=== PATIENT | male | born 1950 | race Caucasian/White ===

== ENCOUNTER 2017-05-30 14:45 | Inpatient (IN) | payer OTHER, MEDICARE ==
[~2017-05-30] VITALS: Ht 190.5 cm; Wt 154.5 kg
[2017-05-30 14:00] VITALS: BP 129/64; PULSE 82; RESP 20
[2017-05-30] MEDS ORDERED: SENNA/DOCUSATE NA (8.6MG/50MG) TAB PO PRN (17:00)
[2017-05-30 17:17] LABS: ADD UMIC YES; UR ASCORBIC ACID NEGATIVE (NEGATIVE); UR BILIRUBIN (Dip) NEGATIVE (NEGATIVE); UR BLOOD (Dip) 2+ mg/dL (NEGATIVE); UR CLARITY CLEAR (CLEAR); UR COLOR STRAW (YELLOW); UR GLUCOSE (Dip) NEGATIVE (NEGATIVE); UR KETONES (Dip) NEGATIVE (NEGATIVE); UR LEUKOCYTE ESTERASE (Dip) NEGATIVE Leu/ul (NEGATIVE); UR NITRITE (Dip) NEGATIVE (NEGATIVE); UR RBC 6 /HPF (0-5); UR SPECIFIC GRAVITY (Dip) 1.006 (1.003-1.030); UR TOTAL PROTEIN (Dip) NEGATIVE (NEGATIVE); UR UROBILINOGEN (Dip) NEGATIVE (NEGATIVE)
[2017-05-30] MEDS: RIVAROXABAN 10 MG TABLET PO SCH (17:28)
[2017-05-30] MEDS: ACETAMINOPHEN 325 MG TAB PO PRN ×2 (17:28→21:48)
[2017-05-30 20:00] VITALS: BP 119/62; RESP 18
[2017-05-30] MEDS: DOCUSATE SODIUM 100 MG CAP PO SCH (20:36)
[2017-05-30] MEDS: GABAPENTIN 100 MG CAP PO SCH (20:36)
[2017-05-30] MEDS: ATORVASTATIN 20 MG TAB PO SCH (20:36)
[2017-05-30] MEDS: LOSARTAN 50 MG TAB PO SCH (20:36)
[2017-05-30] MEDS: LORATADINE 10 MG TAB PO SCH (23:18)
[2017-05-31 02:00] VITALS: BP 124/65; RESP 18
[2017-05-31] MEDS: ACETAMINOPHEN 325 MG TAB PO PRN ×4 (03:19→20:44)
[2017-05-31] MEDS: PANTOPRAZOLE (EC) 40 MG TAB PO SCH (05:58)
[2017-05-31] MEDS: MAGNESIUM HYDROXIDE 30ML CUP PO PRN (07:07)
[2017-05-31 07:30] VITALS: BP 128/65; RESP 20
[2017-05-31] MEDS: DOCUSATE SODIUM 100 MG CAP PO SCH ×2 (08:07→20:43)
[2017-05-31] MEDS: CHOLECALCIFEROL 2,000 UNIT CAP PO SCH (08:08)
[2017-05-31] MEDS: GABAPENTIN 100 MG CAP PO SCH ×2 (08:08→20:44)
[2017-05-31] MEDS: TRIAMTERENE/HCTZ (37.5-25) CAP PO SCH (08:08)
[2017-05-31] MEDS: BUDESONIDE (EC) 3 MG CAP PO SCH (08:08)
--- NOTE | 2017-05-31 08:56 | HP ---
DATE OF ADMISSION: 05/30/2017 CHIEF COMPLAINT: Status post right tendon quadriceps repair. HISTORY OF PRESENT ILLNESS: This is a 67-year-old male with a past medical history of hypertension, history of dyslipidemia, history of bacterial colitis who was admitted to [facility] aft er suffering a ground level fall. The patient subsequent to the fall started to develop right knee pain and inability to walk. The patient was brought over to [facility] on 05/27/2017. T he patient was diagnosed with right patellar tendon tear. The patient was seen by orthopedist and u nderwent surgical correction. Following surgical correction, the patient had no acute complications and he was placed on Xarelto for DVT prophylaxis. The patient, however, did have a decline in his premorbid gait and as a result was transferred to [facility] acute rehab for continued reha bilitation. Currently, the patient is stable. Denies any fevers, chills, nausea, vomiting. The patient is comp laining about some right knee pain, but otherwise is in no acute distress. PAST MEDICAL HISTORY: History of hypertension, history of diabetes, history of obesity, history of bacterial colitis. PAST SURGICAL HISTORY: Previous history of hernia surgery, testicular surgery years ago. FAMILY HISTORY: Noncontributory. SOCIAL HISTORY: Does not drink, smoke or do drugs. MEDICATIONS: The patient's medications have been reviewed and reconciled. ALLERGIES: NO KNOWN DRUG ALLERGIES. REVIEW OF SYSTEMS: A 14-point review of systems was conducted. Pertinent positives stated in HPI, otherwise negative. PHYSICAL EXAMINATION: VITAL SIGNS: Blood pressure is 124/65, respiration 18, pulse 73, temperature 98.7. HEENT: Head is normocephalic. NECK: Supple. HEART: Regular rate. LUNGS: Show diminished breath sounds at base. ABDOMEN: Soft, nontender to palpation without rebound or guarding. EXTREMITIES: Negative for clubbing, cyanosis, no edema on the left leg. Right leg has dressing and a brace. NEUROLOGIC: No focal deficits. DERMATOLOGIC: No rashes. LABORATORY DATA: Currently pending. ASSESSMENT AND PLAN: This is a 67-year-old male who presents with: 1. Status post right quadriceps tendon repair. Plan is to undergo physical therapy and occupationa l therapy. Continue pain control, deep vein thrombosis prophylaxis with Xarelto. 2. Hypertension. Continue current blood pressure regimen. 3. History of bacterial colitis. Continue Budesonide. 4. Neuropathy. Continue Neurontin. 5. Dyslipidemia. Continue statin therapy. 6. Obesity. Continue dietary modification. 7. Gastrointestinal/deep vein thrombosis prophylaxis. Continue proton pump inhibitor and Xarelto. 8. Constipation. Continue lactulose. Please note I spent up to 25 minutes of face to face time with the patient. The patient is FULL COD E. Dictated By: DONY GUZMÁN DO NR/NTS Conf#: [id number] DID#: [id number] CC: NAHUM CHAVEZ MD;*EndCC*
[2017-05-31 09:02] LABS: ALBUMIN 3.1 g/dl (3.3-4.9); ALBUMIN/GLOBULIN RATIO 1.1; BILIRUBIN,INDIRECT 0.5 mg/dl (0-1.1); BILIRUBIN,TOTAL 0.5 mg/dl (0.2-1.3); CALCIUM 8.6 mg/dl (8.4-10.2); CREATININE 1.19 mg/dl (0.61-1.24); POTASSIUM 3.7 mmol/L (3.5-5.1); TOTAL PROTEIN 5.9 g/dl (6.1-8.1)
[2017-05-31 09:56] LABS: BASOPHILS % 0.3 % (0.0-2.0); EOSINOPHILS # 0.1 10^3/ul (0.0-0.5); EOSINOPHILS % 2.1 % (0.0-7.0); HEMATOCRIT 25.4 % (42.0-52.0); HEMOGLOBIN 8.5 g/dl (14.0-18.0); LYMPHOCYTES # 1.2 10^3/ul (0.8-2.9); LYMPHOCYTES % 18.7 % (15.0-51.0); MEAN CORPUSCULAR HGB CONC 33.5 g/dl (32.0-37.0); MEAN CORPUSCULAR VOLUME 95.5 fl (82.0-101.0); MEAN PLATELET VOLUME 11.2 fl (7.4-10.4); MONOCYTE # 0.7 10^3/ul (0.3-0.9); MONOCYTES % 11.3 % (0.0-11.0); NEUTROPHIL # 4.4 10^3/ul (1.6-7.5); NEUTROPHILS % 67.1 % (39.0-77.0); PLATELET COUNT 118 10^3/UL (140-415); RED BLOOD COUNT 2.66 10^6/ul (4.70-6.10); RED CELL DISTRIBUTION WIDTH 14.1 % (11.5-14.5); WHITE BLOOD COUNT 6.5 10^3/ul (4.8-10.8)
--- NOTE | 2017-05-31 11:43 | CONS ---
DATE OF ADMISSION: 05/30/2017 DATE OF CONSULTATION: 05/31/2017 TYPE OF CONSULTATION: Rehabilitation post-admission physician evaluation REHABILITATION IMPAIRMENT CATEGORY: Other orthopedic disorder with right patellar avulsion fracture with quadriceps tendon rupture, status post repair. ACTIVE COMORBIDITIES: 1. Acute pain syndrome. 2. Morbid obesity. 3. Peripheral polyneuropathy. 4. Urinary retention. 5. Hypertension. 6. Hyperlipidemia. 7. Venous insufficiency. 8. Impairments in self-care and mobility. HISTORY OF PRESENT ILLNESS: The patient is a 67-year-old gentleman with a history of multiple medic al comorbidities who is status post a mechanical fall with resultant right patellar avulsion fractur e and quadriceps tendon rupture requiring repair. His postoperative course has been notable for sig nificant pain, urinary retention, constipation, and impairments in self-care and mobility as compare d to baseline. The patient has been cleared to transfer to the rehabilitation unit for comprehensiv e interdisciplinary rehab care. FUNCTIONAL HISTORY: Prior to recent events, he was independent in self-care tasks and mobility. Currently, the patient requires maximal assist for self-care and mobility tasks. I have reviewed the preadmission screen and the patient's current functional status is consistent wi th the preadmission screen. 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 PAST MEDICAL HISTORY: 1. Hypertension. 2. Hyperlipidemia. 3. Peripheral polyneuropathy. 4. Obesity. 5. Venous insufficiency. CURRENT MEDICATIONS: 1. Xarelto 10 mg p.o. daily. 2. Budesonide EC 9 mg p.o. daily. 3. Gabapentin 100 mg p.o. b.i.d. 4. Losartan 50 mg p.o. at bedtime. 5. Simvastatin 40 mg p.o. at bedtime. 6. Triamterene/hydrochlorothiazide 1 capsule p.o. daily. 7. Protonix 40 mg p.o. daily. 8. [place] p.r.n. ALLERGIES: THE PATIENT WITH NO KNOWN DRUG ALLERGIES. PHYSICAL EXAMINATION: VITAL SIGNS: The patient is currently afebrile with stable vital signs. HEENT: The extraocular motions are intact. The oropharynx is clear. NECK: Supple. LUNGS: Clear anteriorly. CARDIAC: S1, S2. ABDOMEN: Soft, nontender, positive bowel sounds. NEUROLOGIC: He is awake and alert. He is oriented to person and hospital and date. He can follow simple 1-step commands. His cranial nerves are grossly intact. He has good strength in bilateral u pper extremity and the left lower extremity. Patient with notable ecchymoses in the left anterior a nd lateral lower extremity and the right lower extremity knee immobilizer is in place. He is able t o dorsiflex and plantarflex. PLAN: The patient has been admitted for comprehensive interdisciplinary acute rehab and is anticipa judit to tolerate 3 hours of daily therapy in divided doses for at least 5/7 days a week. The treatme nt plan will include: 1. Physical therapy to focus on bed mobility, transfers, and household ambulation with the goal of having the patient reach a standby assist level. 2. Occupational therapy to focus on hygiene, grooming, dressing, bathing, and toileting activities with the goal of having the patient reach standby assist level. 3. Rehabilitation nursing for carryover of therapeutic interventions, the goal of continent of mildred l and bladder, and the goal of pain adequately managed on oral medications. REHABILITATION BARRIER: Pain. INTERVENTION FOR BARRIER: interdisciplinary approach. ESTIMATED LENGTH OF STAY: 7 to 10 days. DISPOSITION GOAL: Home. I acknowledge that I performed a full physical examination on this patient within 24 hours of admiss ion to the rehabilitation unit. I believe the patient is a good candidate for comprehensive interdi sciplinary rehab care and is anticipated to make reasonable goals in a reasonable period of time as outlined above. Dictated By: NAHUM TATE/JUDIE Conf#: [id number] DID#: [id number]
[2017-05-31 13:50] VITALS: BP 131/69; PULSE 87; RESP 18
[2017-05-31] MEDS: RIVAROXABAN 10 MG TABLET PO SCH (16:58)
[2017-05-31] MEDS: LACTULOSE 30ML CUP PO PRN (16:58)
[2017-05-31 19:57] VITALS: BP 138/69; RESP 18
[2017-05-31] MEDS: ATORVASTATIN 20 MG TAB PO SCH (20:44)
[2017-05-31] MEDS: LOSARTAN 50 MG TAB PO SCH (20:44)
[2017-05-31] MEDS: LORATADINE 10 MG TAB PO SCH (20:44)
[2017-05-31] MEDS ORDERED: ZOLPIDEM 5 MG TAB PO PRN (23:00)
[2017-06-01] MEDS: PANTOPRAZOLE (EC) 40 MG TAB PO SCH (06:45)
[2017-06-01] MEDS: MAGNESIUM HYDROXIDE 30ML CUP PO PRN (06:45)
[2017-06-01 07:30] VITALS: BP 112/68; PULSE 70; RESP 16
[2017-06-01] MEDS ORDERED: ONDANSETRON 4 MG TAB PO PRN (07:30)
[2017-06-01] MEDS ORDERED: NA PHOSPHATE/BIPHOS 133 ML ENEMA PR PRN (07:30)
[2017-06-01] MEDS ORDERED: ONDANSETRON 4 MG INJ IV PRN (07:30)
[2017-06-01 08:04] LABS: BASOPHILS % 0.2 % (0.0-2.0); EOSINOPHILS # 0.1 10^3/ul (0.0-0.5); EOSINOPHILS % 1.5 % (0.0-7.0); HEMATOCRIT 24.7 % (42.0-52.0); HEMOGLOBIN 8.3 g/dl (14.0-18.0); LYMPHOCYTES % 16.8 % (15.0-51.0); MEAN CORPUSCULAR HEMOGLOBIN 31.4 pg (29.0-33.0); MEAN CORPUSCULAR HGB CONC 33.6 g/dl (32.0-37.0); MEAN CORPUSCULAR VOLUME 93.6 fl (82.0-101.0); MEAN PLATELET VOLUME 10.7 fl (7.4-10.4); MONOCYTE # 0.6 10^3/ul (0.3-0.9); MONOCYTES % 9.7 % (0.0-11.0); NEUTROPHIL # 4.3 10^3/ul (1.6-7.5); NEUTROPHILS % 71.5 % (39.0-77.0); PLATELET COUNT 137 10^3/UL (140-415); POSITIVE DIFF @See below; RED BLOOD COUNT 2.64 10^6/ul (4.70-6.10); RED CELL DISTRIBUTION WIDTH 13.9 % (11.5-14.5)
[2017-06-01 08:27] LABS: CALCIUM 8.6 mg/dl (8.4-10.2); CREATININE 1.1 mg/dl (0.61-1.24); MAGNESIUM 2.1 mg/dl (1.7-2.5); PHOSPHORUS 3.7 mg/dl (2.5-4.9); POTASSIUM 3.5 mmol/L (3.5-5.1)
[2017-06-01] MEDS: BUDESONIDE (EC) 3 MG CAP PO SCH (08:28)
[2017-06-01] MEDS: DOCUSATE SODIUM 100 MG CAP PO SCH ×2 (08:28→20:25)
[2017-06-01] MEDS: CHOLECALCIFEROL 2,000 UNIT CAP PO SCH (08:28)
[2017-06-01] MEDS: GABAPENTIN 100 MG CAP PO SCH ×2 (08:28→20:20)
[2017-06-01] MEDS: TRIAMTERENE/HCTZ (37.5-25) CAP PO SCH (08:29)
[2017-06-01 08:38] VITALS: BP 131/64; PULSE 64; RESP 16
--- NOTE | 2017-06-01 09:31 | RADRPT ---
PROCEDURE: XR Abdomen. CLINICAL INDICATION: Constipation. Nausea and vomiting. TECHNIQUE: AP abdomen x-ray. Patient body habitus limits evaluation. COMPARISON: None. FINDINGS: The bowel gas pattern is normal. There is no evidence of obstruction. There are no abnormal calcific ations overlying the urinary tracts. The osseous structures are unremarkable. IMPRESSION: Unremarkable abdomen radiograph. RPTAT: QQ .Sebastian Najera MD, MD Date Time Electronically viewed and signed by .Sebastian Najera MD, on 06/01/2017 09:31 .L/
--- NOTE | 2017-06-01 10:20 | PN ---
DATE: 06/01/2017 SUBJECTIVE: The patient is currently constipated, has not had a bowel movement in several days. Th e patient also complained about nausea this morning. No other events noted. PHYSICAL EXAMINATION: OBJECTIVE: VITAL SIGNS: Blood pressure 130/69, respiration 18, pulse 75, temperature 98.7. HEENT: Head is normocephalic. NECK: Supple. HEART: Regular rate. LUNGS: Show diminished breath sounds at base. ABDOMEN: Soft, obese. Mild tenderness to palpation. No rebound or guarding. EXTREMITIES: Negative for clubbing, cyanosis, no edema on the left leg. Right leg has a brace and dressing. DERMATOLOGIC: No rashes. NEUROLOGIC: No focal deficits. LABORATORY DATA: Shows a white count 6.0, hemoglobin 8.3, platelet count is 137. BMP within normal limits. ASSESSMENT AND PLAN: 1. Status post right quadriceps tendon repair. The patient is currently stable. Continue physical therapy and occupational therapy. 2. Constipation with nausea and vomiting. Plan is to get a KUB to rule out obstruction. We will c ontinue current bowel regimen. We will give Fleet enema if no significant improvement, we will cons ider a GI consult. 3. Hypertension. Continue current blood pressure regimen. 4. History of bacteria colitis. Continue budesonide. 5. Neuropathy. Continue Neurontin. 6. Dyslipidemia. Continue statin therapy. 7. Obesity. Continue dietary modification. 8. Gastrointestinal and deep venous thrombosis prophylaxis. Continue proton pump inhibitor and Xar elto. Dictated By: DONY HUNTER/JUDIE Conf#: [id number] DID#: [id number]
[2017-06-01] MEDS: ACETAMINOPHEN 325 MG TAB PO PRN ×2 (13:10→20:20)
[2017-06-01 14:36] VITALS: BP 132/68; PULSE 72; RESP 18
[2017-06-01] MEDS: RIVAROXABAN 10 MG TABLET PO SCH (16:50)
[2017-06-01 19:34] VITALS: BP 123/62; RESP 18
[2017-06-01] MEDS: LORATADINE 10 MG TAB PO SCH (20:20)
[2017-06-01] MEDS: ATORVASTATIN 20 MG TAB PO SCH (20:20)
[2017-06-01] MEDS: LOSARTAN 50 MG TAB PO SCH (20:24)
[2017-06-02] MEDS: ACETAMINOPHEN 325 MG TAB PO PRN ×6 (00:24→21:58)
[2017-06-02 02:00] VITALS: BP 130/70; PULSE 63; RESP 18
[2017-06-02] MEDS: PANTOPRAZOLE (EC) 40 MG TAB PO SCH (05:50)
[2017-06-02 08:03] VITALS: BP 118/68; PULSE 63; RESP 20
[2017-06-02] MEDS: DOCUSATE SODIUM 100 MG CAP PO SCH ×2 (08:57→20:07)
[2017-06-02] MEDS: BUDESONIDE (EC) 3 MG CAP PO SCH (08:58)
[2017-06-02] MEDS: TRIAMTERENE/HCTZ (37.5-25) CAP PO SCH (08:58)
[2017-06-02] MEDS: CHOLECALCIFEROL 2,000 UNIT CAP PO SCH (08:58)
[2017-06-02] MEDS: GABAPENTIN 100 MG CAP PO SCH ×2 (08:59→20:07)
--- NOTE | 2017-06-02 09:23 | CONS ---
Date/Time of Note Date/Time of Note DATE: 06/02/17 TIME: 09:22 Consult Date/Type/Reason Admit Date/Time May 30, 2017 at 14:45 Initial Consult Date Objective Vital Signs Date Time Temp Pulse Resp B/P Pulse Ox O2 Delivery O2 Flow Rate FiO2 06/02/17 08:03 98.8 63 20 118/68 98 Room Air Intake and Output 06/01/17 06/01/17 06/02/17 15:00 23:00 07:00 Intake Total 550 ml 300 ml 400 ml Output Total 1250 ml 500 ml 780 ml Balance -700 ml -200 ml -380 ml INTERDISCIPLINARY TEAM CONFERENCE BOWEL- Cont BLADDER-Cont SKIN- incision clean OT- DRESSING-min/mod BATHING-min/mod TOILETING-mod PT- BED MOBILITY-min/mod TRANSFERS-min AMBULATION-min 10 feet A/P- Interdisciplinary team conference held today. Please see interdisciplinary sheet. Working toward d.c. on 06/05 with post discharge follow up of physical therapy, occupational therapy. Results/Medications Result Diagram: 06/01/1731 06/01/17 0731 Medications Current Medications Docusate Sodium (Colace) 100 mg BID PO Last administered on 06/02/17 08:57; Admin Dose 100 MG; Start 05/30/17 at 21:00 Senna/Docusate Sodium (Senokot-S) 1 tab HS PRN PO CONSTIPATION; Start at 17:00 Magnesium Hydroxide (Milk Of Mag) 30 ml BID PRN PO CONSTIPATION Last administered on 06/01/17 06:45; Admin Dose 30 ML; Start 05/30/17 at 17:00 Lactulose (Enulose) 20 gm DAILY PRN PO CONSTIPATION Last administered on 16:58; Admin Dose 20 GM; Start 05/30/17 at 09:00 Rivaroxaban (Xarelto) 10 mg Q24H PO Last administered on 06/01/17 16:50; Admin Dose 10 MG; Start 05/30/17 at 17:00 Budesonide (Entocort Ec) 9 mg DAILY PO Last administered on 06/02/17 08:58; Admin Dose 9 MG; Start 05/31/17 at 09:00 Cholecalciferol (Vitamin D) 2,000 unit DAILY PO Last administered on 08:58; Admin Dose 2,000 UNIT; Start 05/31/17 at 09:00 Gabapentin (Neurontin) 100 mg BID PO Last administered on 06/02/17 08:59; Admin Dose 100 MG; Start 05/30/17 at 21:00 Losartan Potassium (Cozaar) 50 mg HS PO Last administered on 06/01/17 20:24; Admin Dose 50 MG; Start 05/30/17 at 21:00 Atorvastatin Calcium (Lipitor) 20 mg DAILY@21 PO Last administered on 20:20; Admin Dose 20 MG; Start 05/30/17 at 21:00 Triamterene/HCTZ (Dyazide) 1 cap DAILY PO Last administered on 06/02/17 08:58 ; Admin Dose 1 CAP; Start 05/31/17 at 09:00 Pantoprazole (Protonix Tab) 40 mg DAILY@06 PO Last administered on 06/02/17 05:50; Admin Dose 40 MG; Start 05/31/17 at 06:00 Acetaminophen/ Hydrocodone Bitart ([place] (5/325)) 1 tab Q4H PRN PO PAIN; Start 05/30/17 at 17:00 Acetaminophen (Tylenol Tab) 650 mg Q4H PRN PO PAIN OR TEMP>100.5F Last administered on 06/02/17 08:59; Admin Dose 650 MG; Start 05/30/17 at 17:00 Loratadine (Claritin) 10 mg HS PO Last administered on 06/01/17 20:20; Admin Dose 10 MG; Start 05/30/17 at 22:30 Ondansetron HCl (Zofran Inj) 4 mg Q4H PRN IV NAUSEA AND/OR VOMITING; Start at 07:30 Ondansetron HCl (Zofran Tab) 4 mg Q6H PRN PO NAUSEA AND/OR VOMITING Last administered on 06/01/17 07:46; Admin Dose 4 MG; Start 06/01/17 at 07:30 Sodium Biphosphate/ Sodium Phosphate (Fleet Enema) 133 ml DAILY PRN [place] CONSTIPATION Last administered on 06/01/17 07:47; Admin Dose 133 ML; Start at 07:30 NAHUM CHAVEZ MD Jun 02, 2017 09:23 NAHUM CHAVEZ MD Jun 02, 2017 09:23
--- NOTE | 2017-06-02 10:25 | PN ---
DATE: 06/02/2017 SUBJECTIVE: The patient is stable. No events overnight. No fevers, chills, nausea, vomiting. Esther montano had a bowel movement yesterday. OBJECTIVE: VITAL SIGNS: Blood pressure is 118/68, pulse 63, respirations 20, temperature 98.8. HEENT: Head is normocephalic. NECK: Supple. HEART: Regular rate. LUNGS: Show diminished breath sounds at base. ABDOMEN: Soft, nontender to palpation without rebound or guarding. EXTREMITIES: Positive for clubbing, cyanosis, edema. DERMATOLOGIC: No rashes. No scalp lesion. MUSCULOSKELETAL: No joint effusions. NEUROLOGIC: No change in exam. MEDICATIONS: The patient's medications are reviewed. LABORATORY DATA: Shows a BMP is within normal limits. White count 6.9, hemoglobin 8.3, platelet co unt 137. Patient's KUB is within normal limits. ASSESSMENT AND PLAN: 1. Status post right quadriceps tendon repair. The patient is currently stable. Continue physical therapy. 2. Constipation, improved. Continue current bowel regimen. 3. Hypertension. Continue current blood pressure regimen. 4. History of ulcerative colitis. Continue budesonide. 5. Neuropathy. Continue Neurontin. 6. Dyslipidemia. Continue statin therapy. 7. Obesity. Continue dietary modification. 8. GI and deep venous thrombosis prophylaxis. Continue proton pump inhibitor as well. Dictated By: DONY HUNTER/JUDIE Conf#: [id number] DID#: [id number] CC: NAHUM CHAVEZ MD;*EndCC*
[2017-06-02] MEDS: RIVAROXABAN 10 MG TABLET PO SCH (17:37)
[2017-06-02 20:00] VITALS: BP 131/68; PULSE 71; RESP 18
[2017-06-02] MEDS: ATORVASTATIN 20 MG TAB PO SCH (20:07)
[2017-06-02] MEDS: LOSARTAN 50 MG TAB PO SCH (20:10)
[2017-06-02] MEDS: LORATADINE 10 MG TAB PO SCH (20:11)
[2017-06-03 02:00] VITALS: BP 111/57; PULSE 65; RESP 16
[2017-06-03] MEDS: ACETAMINOPHEN 325 MG TAB PO PRN ×4 (03:10→21:08)
[2017-06-03] MEDS: PANTOPRAZOLE (EC) 40 MG TAB PO SCH (05:44)
[2017-06-03 08:00] VITALS: BP 128/68; PULSE 90; RESP 18
[2017-06-03] MEDS: BUDESONIDE (EC) 3 MG CAP PO SCH (08:51)
[2017-06-03] MEDS: GABAPENTIN 100 MG CAP PO SCH ×2 (08:51→21:07)
[2017-06-03] MEDS: CHOLECALCIFEROL 2,000 UNIT CAP PO SCH (08:52)
[2017-06-03] MEDS: TRIAMTERENE/HCTZ (37.5-25) CAP PO SCH (08:52)
[2017-06-03] MEDS: DOCUSATE SODIUM 100 MG CAP PO SCH ×2 (08:52→21:07)
--- NOTE | 2017-06-03 09:03 | PN ---
DATE: 06/03/2017 SUBJECTIVE: The patient is stable. No events overnight. OBJECTIVE: VITAL SIGNS: Blood pressure is 131/68, pulse 71, respiration 20, temperature 98.9. HEENT: Head is normocephalic. NECK: Supple. HEART: Regular rate. LUNGS: Show diminished breath sounds at the base. ABDOMEN: Soft, nontender to palpation. No rebound or guarding. EXTREMITIES: Negative for clubbing, cyanosis, no edema. DERMATOLOGIC: No rashes. MUSCULOSKELETAL: No joint effusions. NEUROLOGIC: No change in exam. MEDICATIONS: The patient's medications have been reviewed. LABORATORY DATA: Has been reviewed. No new labs. ASSESSMENT AND PLAN: 1. Status post right quadriceps tendon repair. The patient is currently stable. Continue physical therapy. 2. Constipation, improved. Continue current bowel regimen. 3. Hypertension. Continue current blood pressure regimen. 4. Ulcerative colitis. Continue budesonide. 5. Neuropathy. Continue Neurontin. 6. Dyslipidemia. Continue statin therapy. 7. Obesity. Continue dietary modification. 8. Gastrointestinal and deep venous thrombosis prophylaxis. Dictated By: DONY HUNTER/NTS Conf#: [id number] DID#: [id number] CC: NAHUM CHAVEZ MD;*EndCC*
--- NOTE | 2017-06-03 11:30 | CONS ---
Date/Time of Note Date/Time of Note DATE: 06/03/17 TIME: : Consult Date/Type/Reason Admit Date/Time May 30, 2017 at 14:45 Subjective Patient complains of Left foot pain, reports he has a history of a foot tendonitis, and would like to see a panel coverer Objective mod/max transfer left lateral foot TTP Vital Signs Date Time Temp Pulse Resp B/P Pulse Ox O2 Delivery O2 Flow Rate FiO2 06/03/17 08:00 98.2 90 18 128/68 99 Room Air Intake and Output 06/02/17 06/02/17 06/03/17 14:59 22:59 06:59 Intake Total 1500 ml 600 ml Output Total 1300 ml 900 ml Balance 200 ml -300 ml Results/Medications Result Diagram: 06/01/1773006/01/17730 Medications Current Medications Docusate Sodium (Colace) 100 mg BID PO Last administered on 06/03/17 08:52; Admin Dose 100 MG; Start 05/30/17 at 21:00 Senna/Docusate Sodium (Senokot-S) 1 tab HS PRN PO CONSTIPATION; Start at 17:00 Magnesium Hydroxide (Milk Of Mag) 30 ml BID PRN PO CONSTIPATION Last administered on 06/01/17 06:45; Admin Dose 30 ML; Start 05/30/17 at 17:00 Lactulose (Enulose) 20 gm DAILY PRN PO CONSTIPATION Last administered on 16:58; Admin Dose 20 GM; Start 05/30/17 at 09:00 Rivaroxaban (Xarelto) 10 mg Q24H PO Last administered on 06/02/17 17:37; Admin Dose 10 MG; Start 05/30/17 at 17:00 Budesonide (Entocort Ec) 9 mg DAILY PO Last administered on 06/03/17 08:51; Admin Dose 9 MG; Start 05/31/17 at 09:00 Cholecalciferol (Vitamin D) 2,000 unit DAILY PO Last administered on 08:52; Admin Dose 2,000 UNIT; Start 05/31/17 at 09:00 Gabapentin (Neurontin) 100 mg BID PO Last administered on 06/03/17 08:51; Admin Dose 100 MG; Start 05/30/17 at 21:00 Losartan Potassium (Cozaar) 50 mg HS PO Last administered on 06/01/17 20:24; Admin Dose 50 MG; Start 05/30/17 at 21:00 Atorvastatin Calcium (Lipitor) 20 mg DAILY@21 PO Last administered on 20:07; Admin Dose 20 MG; Start 05/30/17 at 21:00 Triamterene/HCTZ (Dyazide) 1 cap DAILY PO Last administered on 06/03/17 08:52 ; Admin Dose 1 CAP; Start 05/31/17 at 09:00 Pantoprazole (Protonix Tab) 40 mg DAILY@06 PO Last administered on 06/03/17 05:44; Admin Dose 40 MG; Start 05/31/17 at 06:00 Acetaminophen/ Hydrocodone Bitart ([place] (5/325)) 1 tab Q4H PRN PO PAIN; Start 05/30/17 at 17:00 Acetaminophen (Tylenol Tab) 650 mg Q4H PRN PO PAIN OR TEMP>100.5F Last administered on 06/03/17 08:52; Admin Dose 650 MG; Start 05/30/17 at 17:00 Loratadine (Claritin) 10 mg HS PO Last administered on 06/02/17 20:11; Admin Dose 10 MG; Start 05/30/17 at 22:30 Ondansetron HCl (Zofran Inj) 4 mg Q4H PRN IV NAUSEA AND/OR VOMITING; Start at 07:30 Ondansetron HCl (Zofran Tab) 4 mg Q6H PRN PO NAUSEA AND/OR VOMITING Last administered on 06/01/17 07:46; Admin Dose 4 MG; Start 06/01/17 at 07:30 Sodium Biphosphate/ Sodium Phosphate (Fleet Enema) 133 ml DAILY PRN [place] CONSTIPATION Last administered on 06/01/17 07:47; Admin Dose 133 ML; Start at 07:30 Assessment/Plan Additional Assessment/Plan Rehab-Other orthopedic disorder with right patellar avulsion fracture with quadriceps tendon rupture, status post repair. Patient wih history of Left foot tendonitis. Given recent fall, will check left foot xray. Will have podiatry consult. Acute pain syndrome-improving Morbid obesity. Peripheral polyneuropathy. Urinary retention-voiding Hypertension. Hyperlipidemia. Venous insufficiency. NAHUM CHAVEZ MD Jun 03, 2017 11:30
--- NOTE | 2017-06-03 16:40 | RADRPT ---
PROCEDURE: XR LEFT FOOT. CLINICAL INDICATION: Tendonitis. TECHNIQUE: Three views of the left foot were obtained. COMPARISON: No prior studies are available for comparison. FINDINGS: Bony alignment is within normal limits. No evidence for fracture, subluxation or dislocation. No e rosive changes are seen.. IMPRESSION: 1. Unremarkable left foot x-ray series. 2. No evidence for fracture, subluxation or dislocation. 3. No erosive changes are seen. RPTAT: XX .oJe Escobar MD, Date Time Electronically viewed and signed by .Joe Escobar MD, on 06/03/2017 16:39 .T/
[2017-06-03] MEDS: RIVAROXABAN 10 MG TABLET PO SCH (17:59)
[2017-06-03] MEDS: LORATADINE 10 MG TAB PO SCH (21:07)
[2017-06-03] MEDS: ATORVASTATIN 20 MG TAB PO SCH (21:07)
[2017-06-03] MEDS: LOSARTAN 50 MG TAB PO SCH (21:09)
[2017-06-03 21:10] VITALS: BP 122/63; PULSE 91; RESP 18
[2017-06-04] MEDS: ACETAMINOPHEN 325 MG TAB PO PRN ×2 (01:04→05:52)
[2017-06-04 02:04] VITALS: BP 116/68; PULSE 69; RESP 18
[2017-06-04] MEDS: PANTOPRAZOLE (EC) 40 MG TAB PO SCH (05:50)
[2017-06-04 08:00] VITALS: BP 119/65; PULSE 62; RESP 20
[2017-06-04] MEDS: TRIAMTERENE/HCTZ (37.5-25) CAP PO SCH (09:20)
[2017-06-04] MEDS: DOCUSATE SODIUM 100 MG CAP PO SCH ×2 (09:20→21:11)
[2017-06-04] MEDS: BUDESONIDE (EC) 3 MG CAP PO SCH (09:20)
[2017-06-04] MEDS: HYDROCODONE/APAP (5/325) TAB PO PRN ×4 (09:21→21:12)
[2017-06-04] MEDS: GABAPENTIN 100 MG CAP PO SCH ×2 (09:21→21:11)
[2017-06-04] MEDS: CHOLECALCIFEROL 2,000 UNIT CAP PO SCH (09:21)
--- NOTE | 2017-06-04 09:36 | CONS ---
Date/Time of Note Date/Time of Note DATE: 06/04/17 TIME: 09:22 Consultation Date/Type/Reason Admit Date/Time May 30, 2017 at 14:45 Tendoniitis of the peroneal tendon of the left foot.s/p Quad. repair of the right leg. Additional Comments Vascular 3/4 DP and PT. Neuro: Intact, +5 Muscle testing of the left foot. + 4 pain of the peroneal tendon region. No signs of clinical infection. Plan: We discussed functional orthoses bilat. in the future. Given exercises to strengthen tendon. 4 degrees of motion on rearpost for orthoses Social History Smoking Status: Former smoker Exam/Review of Systems Vital Signs Vitals Vital Signs Date Time Temp Pulse Resp B/P Pulse Ox O2 Delivery O2 Flow Rate FiO2 06/04/17 02:04 98.4 69 18 116/68 95 Room Air Intake and Output 06/03/17 06/03/17 06/04/17 15:00 23:00 07:00 Intake Total 600 ml 500 ml Output Total 550 ml 1350 ml Balance 50 ml -850 ml Results Result Diagram: 06/01/1773006/01/17730 Medications Medications Current Medications Docusate Sodium (Colace) 100 mg BID PO Last administered on 06/04/17 09:20; Admin Dose 100 MG; Start 05/30/17 at 21:00 Senna/Docusate Sodium (Senokot-S) 1 tab HS PRN PO CONSTIPATION; Start at 17:00 Magnesium Hydroxide (Milk Of Mag) 30 ml BID PRN PO CONSTIPATION Last administered on 06/01/17 06:45; Admin Dose 30 ML; Start 05/30/17 at 17:00 Lactulose (Enulose) 20 gm DAILY PRN PO CONSTIPATION Last administered on 16:58; Admin Dose 20 GM; Start 05/30/17 at 09:00 Rivaroxaban (Xarelto) 10 mg Q24H PO Last administered on 06/03/17 17:59; Admin Dose 10 MG; Start 05/30/17 at 17:00 Budesonide (Entocort Ec) 9 mg DAILY PO Last administered on 06/04/17 09:20; Admin Dose 9 MG; Start 05/31/17 at 09:00 Cholecalciferol (Vitamin D) 2,000 unit DAILY PO Last administered on 09:21; Admin Dose 2,000 UNIT; Start 05/31/17 at 09:00 Gabapentin (Neurontin) 100 mg BID PO Last administered on 06/04/17 09:21; Admin Dose 100 MG; Start 05/30/17 at 21:00 Losartan Potassium (Cozaar) 50 mg HS PO Last administered on 06/03/17 21:09; Admin Dose 50 MG; Start 05/30/17 at 21:00 Atorvastatin Calcium (Lipitor) 20 mg DAILY@21 PO Last administered on 21:07; Admin Dose 20 MG; Start 05/30/17 at 21:00 Triamterene/HCTZ (Dyazide) 1 cap DAILY PO Last administered on 06/04/17 09:20 ; Admin Dose 1 CAP; Start 05/31/17 at 09:00 Pantoprazole (Protonix Tab) 40 mg DAILY@06 PO Last administered on 06/04/17 05:50; Admin Dose 40 MG; Start 05/31/17 at 06:00 Acetaminophen/ Hydrocodone Bitart ([place] (5/325)) 1 tab Q4H PRN PO PAIN Last administered on 06/04/17 09:21; Admin Dose 1 TAB; Start 05/30/17 at 17:00 Acetaminophen (Tylenol Tab) 650 mg Q4H PRN PO PAIN OR TEMP>100.5F Last administered on 06/04/17 05:52; Admin Dose 650 MG; Start 05/30/17 at 17:00 Loratadine (Claritin) 10 mg HS PO Last administered on 06/03/17 21:07; Admin Dose 10 MG; Start 05/30/17 at 22:30 Ondansetron HCl (Zofran Inj) 4 mg Q4H PRN IV NAUSEA AND/OR VOMITING; Start at 07:30 Ondansetron HCl (Zofran Tab) 4 mg Q6H PRN PO NAUSEA AND/OR VOMITING Last administered on 06/01/17 07:46; Admin Dose 4 MG; Start 06/01/17 at 07:30 Sodium Biphosphate/ Sodium Phosphate (Fleet Enema) 133 ml DAILY PRN [place] CONSTIPATION Last administered on 06/01/17 07:47; Admin Dose 133 ML; Start at 07:30 HALEY PETERS DPM Jun 04, 2017 09:35
--- NOTE | 2017-06-04 10:18 | PN ---
DATE: 06/04/2017 SUBJECTIVE: The patient is stable. No events overnight. No fevers, chills, nausea, vomiting. OBJECTIVE: VITAL SIGNS: Blood pressure is 116/68, respiration 18, pulse 69, temperature 98.4. HEENT: Head is normocephalic. NECK: Supple. HEART: Regular rate. LUNGS: Show diminished breath sounds at base. ABDOMEN: Soft, nontender to palpation. No rebound or guarding. EXTREMITIES: Negative for clubbing, cyanosis or edema. DERMATOLOGIC: No rashes. MUSCULOSKELETAL: No joint effusions. NEUROLOGIC: No change in exam. MEDICATIONS: The patient's medications have been reviewed. IMAGING STUDIES: Have been reviewed. ASSESSMENT AND PLAN: 1. Status post right quadriceps tendon repair. The patient is currently stable. Continue physical therapy. 2. Constipation, improved. Continue current bowel regimen. 3. Hypertension. Continue current blood pressure regimen. 4. Ulcerative colitis. Continue Budesonide. 5. Neuropathy. Continue Neurontin. 6. Tendonitis. Continue physical therapy. 7. Dyslipidemia. Continue statin therapy. 8. Obesity. Continue dietary modification. 9. Gastrointestinal and deep venous thrombosis prophylaxis. Dictated By: DONY HUNTER/JUDIE Conf#: [id number] DID#: [id number]
--- NOTE | 2017-06-04 12:52 | CONS ---
Date/Time of Note Date/Time of Note DATE: 06/04/17 TIME: 12:52 Consult Date/Type/Reason Admit Date/Time May 30, 2017 at 14:45 Subjective Overall improving Objective pulm-cta mod assist transfer Vital Signs Date Time Temp Pulse Resp B/P Pulse Ox O2 Delivery O2 Flow Rate FiO2 06/04/17 02:04 98.4 69 18 116/68 95 Room Air Intake and Output 06/03/17 06/03/17 06/04/17 15:00 23:00 07:00 Intake Total 600 ml 500 ml Output Total 550 ml 1350 ml Balance 50 ml -850 ml Results/Medications Result Diagram: 06/01/1773006/01/17 07 Medications Current Medications Docusate Sodium (Colace) 100 mg BID PO Last administered on 06/04/17 09:20; Admin Dose 100 MG; Start 05/30/17 at 21:00 Senna/Docusate Sodium (Senokot-S) 1 tab HS PRN PO CONSTIPATION; Start at 17:00 Magnesium Hydroxide (Milk Of Mag) 30 ml BID PRN PO CONSTIPATION Last administered on 06/01/17 06:45; Admin Dose 30 ML; Start 05/30/17 at 17:00 Lactulose (Enulose) 20 gm DAILY PRN PO CONSTIPATION Last administered on 16:58; Admin Dose 20 GM; Start 05/30/17 at 09:00 Rivaroxaban (Xarelto) 10 mg Q24H PO Last administered on 06/03/17 17:59; Admin Dose 10 MG; Start 05/30/17 at 17:00 Budesonide (Entocort Ec) 9 mg DAILY PO Last administered on 06/04/17 09:20; Admin Dose 9 MG; Start 05/31/17 at 09:00 Cholecalciferol (Vitamin D) 2,000 unit DAILY PO Last administered on 09:21; Admin Dose 2,000 UNIT; Start 05/31/17 at 09:00 Gabapentin (Neurontin) 100 mg BID PO Last administered on 06/04/17 09:21; Admin Dose 100 MG; Start 05/30/17 at 21:00 Losartan Potassium (Cozaar) 50 mg HS PO Last administered on 06/03/17 21:09; Admin Dose 50 MG; Start 05/30/17 at 21:00 Atorvastatin Calcium (Lipitor) 20 mg DAILY@21 PO Last administered on 21:07; Admin Dose 20 MG; Start 05/30/17 at 21:00 Triamterene/HCTZ (Dyazide) 1 cap DAILY PO Last administered on 06/04/17 09:20 ; Admin Dose 1 CAP; Start 05/31/17 at 09:00 Pantoprazole (Protonix Tab) 40 mg DAILY@06 PO Last administered on 06/04/17 05:50; Admin Dose 40 MG; Start 05/31/17 at 06:00 Acetaminophen/ Hydrocodone Bitart ([place] (5/325)) 1 tab Q4H PRN PO PAIN Last administered on 06/04/17 09:21; Admin Dose 1 TAB; Start 05/30/17 at 17:00 Acetaminophen (Tylenol Tab) 650 mg Q4H PRN PO PAIN OR TEMP>100.5F Last administered on 06/04/17 05:52; Admin Dose 650 MG; Start 05/30/17 at 17:00 Loratadine (Claritin) 10 mg HS PO Last administered on 06/03/17 21:07; Admin Dose 10 MG; Start 05/30/17 at 22:30 Ondansetron HCl (Zofran Inj) 4 mg Q4H PRN IV NAUSEA AND/OR VOMITING; Start at 07:30 Ondansetron HCl (Zofran Tab) 4 mg Q6H PRN PO NAUSEA AND/OR VOMITING Last administered on 06/01/17 07:46; Admin Dose 4 MG; Start 06/01/17 at 07:30 Sodium Biphosphate/ Sodium Phosphate (Fleet Enema) 133 ml DAILY PRN [place] CONSTIPATION Last administered on 06/01/17 07:47; Admin Dose 133 ML; Start at 07:30 Assessment/Plan Additional Assessment/Plan Rehab- Other ortho disorder with R patellar fracture and quad tendon rupture-s/ p repair, L knee contusion and L foot tendontitis Overall steady gains. Continue rehab progrtam. pain- improving HTN HLD Obesity NAHUM CHAVEZ MD Jun 04, 2017 12:52
[2017-06-04] MEDS: RIVAROXABAN 10 MG TABLET PO SCH (17:25)
[2017-06-04] MEDS: ATORVASTATIN 20 MG TAB PO SCH (21:11)
[2017-06-04] MEDS: LORATADINE 10 MG TAB PO SCH (21:11)
[2017-06-04] MEDS: LOSARTAN 50 MG TAB PO SCH (21:12)
[2017-06-04 21:16] VITALS: BP 126/63; PULSE 62; RESP 18
[2017-06-05] MEDS: HYDROCODONE/APAP (5/325) TAB PO PRN ×4 (02:58→17:07)
[2017-06-05] MEDS: PANTOPRAZOLE (EC) 40 MG TAB PO SCH (07:04)
[2017-06-05 08:00] VITALS: BP 111/60; RESP 19
[2017-06-05] MEDS: BUDESONIDE (EC) 3 MG CAP PO SCH (09:44)
[2017-06-05] MEDS: CHOLECALCIFEROL 2,000 UNIT CAP PO SCH (09:46)
[2017-06-05] MEDS: TRIAMTERENE/HCTZ (37.5-25) CAP PO SCH (09:46)
[2017-06-05] MEDS: GABAPENTIN 100 MG CAP PO SCH ×2 (09:46→20:39)
[2017-06-05] MEDS: LACTULOSE 30ML CUP PO PRN (09:46)
[2017-06-05] MEDS: DOCUSATE SODIUM 100 MG CAP PO SCH ×2 (09:46→20:38)
--- NOTE | 2017-06-05 12:14 | PN ---
DATE: 06/05/2017 SUBJECTIVE: The patient had no events overnight. No fevers, chills, nausea or vomiting. OBJECTIVE: VITAL SIGNS: Blood pressure is 126/63, respiration 18, pulse 62, temperature 98.6. HEENT: Head is normocephalic. NECK: Supple. HEART: Regular rate. LUNGS: Show diminished breath sounds at the base. ABDOMEN: Soft, nontender to palpation. No rebound or guarding. EXTREMITIES: Negative for clubbing, cyanosis, no edema. DERMATOLOGIC: No rashes. MUSCULOSKELETAL: No joint effusions. NEUROLOGIC: No change in exam. MEDICATIONS: The patient's medications have been reviewed. LABORATORY DATA: Has been reviewed. No new labs. ASSESSMENT AND PLAN: 1. Status post right quadriceps tendon repair. The patient is currently stable. Continue physical therapy. 2. Constipation, improved. 3. Hypertension. Continue current bowel regimen. 4. Ulcerative colitis. Continue budesonide. 5. Neuropathy. Continue Neurontin. 6. Tendinitis. Continue physical therapy. 7. Dyslipidemia. Continue statin therapy. 8. Obesity. Continue dietary modification. 9. Gastrointestinal and deep vein thrombosis prophylaxis. Dictated By: DONY HUNTER/JUDIE Conf#: [id number] DID#: [id number]
--- NOTE | 2017-06-05 12:33 | CONS ---
Date/Time of Note Date/Time of Note DATE: 06/05/17 TIME: 12:32 Consult Date/Type/Reason Admit Date/Time May 30, 2017 at 14:45 Subjective Requesting toenail trimming Objective pulm-cta mod transfer ambulation min Vital Signs Date Time Temp Pulse Resp B/P Pulse Ox O2 Delivery O2 Flow Rate FiO2 06/04/17 21:16 98.6 62 18 126/63 97 Room Air Intake and Output 06/04/17 06/04/17 06/05/17 15:00 23:00 07:00 Intake Total 200 ml Output Total 900 ml Balance -900 ml 200 ml Results/Medications Result Diagram: 06/01/1773006/01/17730 Medications Current Medications Docusate Sodium (Colace) 100 mg BID PO Last administered on 06/05/17 09:46; Admin Dose 100 MG; Start 05/30/17 at 21:00 Senna/Docusate Sodium (Senokot-S) 1 tab HS PRN PO CONSTIPATION; Start at 17:00 Magnesium Hydroxide (Milk Of Mag) 30 ml BID PRN PO CONSTIPATION Last administered on 06/01/17 06:45; Admin Dose 30 ML; Start 05/30/17 at 17:00 Lactulose (Enulose) 20 gm DAILY PRN PO CONSTIPATION Last administered on 09:46; Admin Dose 20 GM; Start 05/30/17 at 09:00 Rivaroxaban (Xarelto) 10 mg Q24H PO Last administered on 06/04/17 17:25; Admin Dose 10 MG; Start 05/30/17 at 17:00 Budesonide (Entocort Ec) 9 mg DAILY PO Last administered on 06/05/17 09:44; Admin Dose 9 MG; Start 05/31/17 at 09:00 Cholecalciferol (Vitamin D) 2,000 unit DAILY PO Last administered on 09:46; Admin Dose 2,000 UNIT; Start 05/31/17 at 09:00 Gabapentin (Neurontin) 100 mg BID PO Last administered on 06/05/17 09:46; Admin Dose 100 MG; Start 05/30/17 at 21:00 Losartan Potassium (Cozaar) 50 mg HS PO Last administered on 06/04/17 21:12; Admin Dose 50 MG; Start 05/30/17 at 21:00 Atorvastatin Calcium (Lipitor) 20 mg DAILY@21 PO Last administered on 21:11; Admin Dose 20 MG; Start 05/30/17 at 21:00 Triamterene/HCTZ (Dyazide) 1 cap DAILY PO Last administered on 06/05/17 09:46 ; Admin Dose 1 CAP; Start 05/31/17 at 09:00 Pantoprazole (Protonix Tab) 40 mg DAILY@06 PO Last administered on 06/05/17 07:04; Admin Dose 40 MG; Start 05/31/17 at 06:00 Acetaminophen/ Hydrocodone Bitart ([place] (5/325)) 1 tab Q4H PRN PO PAIN Last administered on 06/05/17 07:54; Admin Dose 1 TAB; Start 05/30/17 at 17:00 Acetaminophen (Tylenol Tab) 650 mg Q4H PRN PO PAIN OR TEMP>100.5F Last administered on 06/04/17 05:52; Admin Dose 650 MG; Start 05/30/17 at 17:00 Loratadine (Claritin) 10 mg HS PO Last administered on 06/04/17 21:11; Admin Dose 10 MG; Start 05/30/17 at 22:30 Ondansetron HCl (Zofran Inj) 4 mg Q4H PRN IV NAUSEA AND/OR VOMITING; Start at 07:30 Ondansetron HCl (Zofran Tab) 4 mg Q6H PRN PO NAUSEA AND/OR VOMITING Last administered on 06/01/17 07:46; Admin Dose 4 MG; Start 06/01/17 at 07:30 Sodium Biphosphate/ Sodium Phosphate (Fleet Enema) 133 ml DAILY PRN [place] CONSTIPATION Last administered on 06/01/17 07:47; Admin Dose 133 ML; Start at 07:30 Assessment/Plan Additional Assessment/Plan Rehab- Other ortho disorder with R patellar fracture and quad tendon rupture-s/ p repair, L knee contusion and L foot tendontitis Continue rehab pain- improving HTN HLD Obesity NAHUM CHAVEZ MD Jun 05, 2017 12:33
[2017-06-05] MEDS: RIVAROXABAN 10 MG TABLET PO SCH (17:04)
[2017-06-05 20:00] VITALS: BP 131/63; PULSE 74; RESP 18
[2017-06-05] MEDS: ATORVASTATIN 20 MG TAB PO SCH (20:39)
[2017-06-05] MEDS: LOSARTAN 50 MG TAB PO SCH (20:45)
[2017-06-05] MEDS: LORATADINE 10 MG TAB PO SCH (20:46)
[2017-06-06 02:00] VITALS: BP 102/54; PULSE 68; RESP 16
[2017-06-06] MEDS: HYDROCODONE/APAP (5/325) TAB PO PRN ×4 (02:05→18:52)
[2017-06-06] MEDS: PANTOPRAZOLE (EC) 40 MG TAB PO SCH (06:20)
[2017-06-06] MEDS ORDERED: BISACODYL 10 MG SUPP PR PRN (06:30)
[2017-06-06 07:53] VITALS: BP 114/59; PULSE 65; RESP 20
[2017-06-06] MEDS: CHOLECALCIFEROL 2,000 UNIT CAP PO SCH (08:41)
[2017-06-06] MEDS: DOCUSATE SODIUM 100 MG CAP PO SCH ×2 (08:41→20:31)
[2017-06-06] MEDS: TRIAMTERENE/HCTZ (37.5-25) CAP PO SCH (08:41)
[2017-06-06] MEDS: BUDESONIDE (EC) 3 MG CAP PO SCH (08:41)
[2017-06-06] MEDS: GABAPENTIN 100 MG CAP PO SCH ×2 (08:42→20:31)
--- NOTE | 2017-06-06 09:37 | QN ---
Documentation Comment F/UP Debrided Toe nails 1-5 6-10 bilat. We discussed orthoses in the future after fracture healed. HALEY PETERS DPM Jun 06, 2017 09:37
--- NOTE | 2017-06-06 11:44 | PN ---
DATE: 06/06/2017 SUBJECTIVE: The patient is stable. No events overnight. No fevers, chills, nausea, vomiting. OBJECTIVE: VITAL SIGNS: Blood pressure , respirations 20, pulse 65, temperature 97.8. HEENT: Head is normocephalic. NECK: Supple. HEART: Regular rate. LUNGS: Show diminished breath sounds at base. ABDOMEN: Soft, nontender to palpation without rebound or guarding. EXTREMITIES: Negative for clubbing, cyanosis, no edema. DERMATOLOGIC: No rashes. MUSCULOSKELETAL: No joint effusions. NEUROLOGIC: No change in exam. MEDICATIONS: Have been reviewed. LABORATORY DATA: Has been reviewed. ASSESSMENT AND PLAN: 1. Status post right quadriceps tendon repair. The patient is currently stable. Continue physical therapy. 2. Constipation, improved. Continue current bowel regimen. 3. Hypertension. Continue current blood pressure regimen. 4. Ulcerative colitis. Continue budesonide. 5. Neuropathy. Continue Neurontin. 6. Dyslipidemia. Continue statin therapy. 7. Obesity. Continue dietary modification. 8. Gastrointestinal and deep vein thrombosis prophylaxis. Dictated By: DONY HUNTER/NTS Conf#: [id number] DID#: [id number] CC: NAHUM CHAVEZ MD;*End*
--- NOTE | 2017-06-06 12:24 | CONS ---
Date/Time of Note Date/Time of Note DATE: 06/06/17 TIME: 12:22 Consult Date/Type/Reason Admit Date/Time May 30, 2017 at 14:45 Subjective reports abdominal discomfort. Reports he has had a BM Objective pulm-cta mod assist Vital Signs Date Time Temp Pulse Resp B/P Pulse Ox O2 Delivery O2 Flow Rate FiO2 06/06/17 07:53 97.8 65 20 114/59 96 Room Air Intake and Output 06/05/17 06/05/17 06/06/17 15:00 23:00 07:00 Intake Total 150 ml 300 ml Output Total 850 ml 900 ml Balance -700 ml -600 ml Results/Medications Medications Current Medications Docusate Sodium (Colace) 100 mg BID PO Last administered on 06/06/17 08:41; Admin Dose 100 MG; Start 05/30/17 at 21:00 Senna/Docusate Sodium (Senokot-S) 1 tab HS PRN PO CONSTIPATION; Start at 17:00 Magnesium Hydroxide (Milk Of Mag) 30 ml BID PRN PO CONSTIPATION Last administered on 06/01/17 06:45; Admin Dose 30 ML; Start 05/30/17 at 17:00 Lactulose (Enulose) 20 gm DAILY PRN PO CONSTIPATION Last administered on 09:46; Admin Dose 20 GM; Start 05/30/17 at 09:00 Rivaroxaban (Xarelto) 10 mg Q24H PO Last administered on 06/05/17 17:04; Admin Dose 10 MG; Start 05/30/17 at 17:00 Budesonide (Entocort Ec) 9 mg DAILY PO Last administered on 06/06/17 08:41; Admin Dose 9 MG; Start 05/31/17 at 09:00 Cholecalciferol (Vitamin D) 2,000 unit DAILY PO Last administered on 06/06/17 08:41; Admin Dose 2,000 UNIT; Start 05/31/17 at 09:00 Gabapentin (Neurontin) 100 mg BID PO Last administered on 06/06/17 08:42; Admin Dose 100 MG; Start 05/30/17 at 21:00 Losartan Potassium (Cozaar) 50 mg HS PO Last administered on 06/05/17 20:45; Admin Dose 50 MG; Start 05/30/17 at 21:00 Atorvastatin Calcium (Lipitor) 20 mg DAILY@21 PO Last administered on 20:39; Admin Dose 20 MG; Start 05/30/17 at 21:00 Triamterene/HCTZ (Dyazide) 1 cap DAILY PO Last administered on 06/06/17 08:41 ; Admin Dose 1 CAP; Start 05/31/17 at 09:00 Pantoprazole (Protonix Tab) 40 mg DAILY@06 PO Last administered on 06/06/17 06 :20; Admin Dose 40 MG; Start 05/31/17 at 06:00 Acetaminophen/ Hydrocodone Bitart ([place] (5/325)) 1 tab Q4H PRN PO PAIN Last administered on 06/06/17 12:20; Admin Dose 1 TAB; Start 05/30/17 at 17:00 Acetaminophen (Tylenol Tab) 650 mg Q4H PRN PO PAIN OR TEMP>100.5F Last administered on 06/04/17 05:52; Admin Dose 650 MG; Start 05/30/17 at 17:00 Loratadine (Claritin) 10 mg HS PO Last administered on 06/05/17 20:46; Admin Dose 10 MG; Start 05/30/17 at 22:30 Ondansetron HCl (Zofran Inj) 4 mg Q4H PRN IV NAUSEA AND/OR VOMITING; Start at 07:30 Ondansetron HCl (Zofran Tab) 4 mg Q6H PRN PO NAUSEA AND/OR VOMITING Last administered on 06/01/17 07:46; Admin Dose 4 MG; Start 06/01/17 at 07:30 Sodium Biphosphate/ Sodium Phosphate (Fleet Enema) 133 ml DAILY PRN [place] CONSTIPATION Last administered on 06/01/17 07:47; Admin Dose 133 ML; Start at 07:30 Bisacodyl (Dulcolax Supp) 10 mg DAILY PRN [place]STIPATION Last administered on 06/06/17 06:20; Admin Dose 10 MG; Start 06/06/17 at 06:30 Assessment/Plan Additional Assessment/Plan Rehab- Other ortho disorder with R patellar fracture and quad tendon rupture-s/ p repair, L knee contusion and L foot tendontitis Continue rehab, and increase activities as tolerated GI- Case d/w Dr Nobles, will check Abd U.S. HTN HLD Obesity NAHUM CHAVEZ MD Jun 06, 2017 12:24
[2017-06-06 16:22] VITALS: BP 120/58; RESP 18
--- NOTE | 2017-06-06 17:01 | RADRPT ---
PROCEDURE: US Abdomen. CLINICAL INDICATION: Abdominal pain TECHNIQUE: Multiple real-time images were acquired of the patient's abdomen and retroperitoneum ut ilizing a high resolution transducer. COMPARISON: None FINDINGS: The liver is increased in echogenicity and measures 19.1 cm. No focal hepatic masses are seen. The gallbladder is physiologically distended. There are calcified gallstones. There is no gallbladder wall thickening or pericholecystic fluid. The intra and extrahepatic bile ducts are normal in calib er. The common bile duct measures 3.5 mm. Midline images demonstrate the pancreas to be increased in echogenicity without obvious inflammatory change. The aorta and IVC are normal in caliber. The aorta measures 2.0 cm. The spleen is within normal limits and measures 12.0 cm. Survey views of the kidneys demonstrate no evidence of hydronephrosis or renal calculi. The right k idney measures 12.1 cm, and the left kidney measures 11.1 cm. There are bilateral simple renal cyst. Largest cyst in the right kidney measures 6.3 cm, largest cyst in the left kidney measures 2.7 cm IMPRESSION: 1. Cholelithiasis. There is no gallbladder wall thickening or pericholecystic fluid to suggest acut e cholecystitis. 2. No biliary duct dilatation. 3. Fatty change of the liver. 4. Mild hepatomegaly. 5. Increase echogenicity of the pancreas suggests fatty replacement. 6. Bilateral renal cysts RPTAT: HH .Max Cho MD, MD Date Time Electronically viewed and signed by .Max Cho MD, MD on 06/06/2017 17:00 .W/
[2017-06-06] MEDS: RIVAROXABAN 10 MG TABLET PO SCH (17:14)
[2017-06-06 20:08] VITALS: BP 117/65; RESP 18
[2017-06-06] MEDS: LOSARTAN 50 MG TAB PO SCH (20:30)
[2017-06-06] MEDS: ATORVASTATIN 20 MG TAB PO SCH (20:30)
[2017-06-06] MEDS: LORATADINE 10 MG TAB PO SCH (20:31)
[2017-06-07] MEDS: HYDROCODONE/APAP (5/325) TAB PO PRN ×3 (06:38→21:12)
[2017-06-07] MEDS: PANTOPRAZOLE (EC) 40 MG TAB PO SCH (06:38)
[2017-06-07 07:30] VITALS: BP 107/56; RESP 20
[2017-06-07] MEDS: BUDESONIDE (EC) 3 MG CAP PO SCH (08:43)
[2017-06-07] MEDS: GABAPENTIN 100 MG CAP PO SCH ×2 (08:43→21:08)
[2017-06-07] MEDS: DOCUSATE SODIUM 100 MG CAP PO SCH ×2 (08:43→21:08)
[2017-06-07] MEDS: CHOLECALCIFEROL 2,000 UNIT CAP PO SCH (08:43)
[2017-06-07] MEDS: TRIAMTERENE/HCTZ (37.5-25) CAP PO SCH (08:43)
--- NOTE | 2017-06-07 10:28 | CONS ---
Date/Time of Note Date/Time of Note DATE: 06/07/17 TIME: 10:25 Consult Date/Type/Reason Admit Date/Time May 30, 2017 at 14:45 Initial Consult Date Subjective The patient is stable. No events overnight. No fevers, chills, nausea, vomiting. OBJECTIVE: HEENT: Head is normocephalic. NECK: Supple. HEART: Regular rate. LUNGS: Show diminished breath sounds at base. ABDOMEN: Soft, nontender to palpation without rebound or guarding. EXTREMITIES: Negative for clubbing, cyanosis, no edema. DERMATOLOGIC: No rashes. MUSCULOSKELETAL: No joint effusions. NEUROLOGIC: No change in exam. MEDICATIONS: Have been reviewed. Objective Vital Signs Date Time Temp Pulse Resp B/P Pulse Ox O2 Delivery O2 Flow Rate FiO2 06/07/17 07:30 98.5 62 20 107/56 99 06/06/17 07:53 Room Air Intake and Output 06/06/17 06/06/17 06/07/17 15:00 23:00 07:00 Intake Total 200 ml 950 ml Output Total 400 ml Balance -200 ml 950 ml Results/Medications Medications Current Medications Docusate Sodium (Colace) 100 mg BID PO Last administered on 06/07/17 08:43; Admin Dose 100 MG; Start 05/30/17 at 21:00 Senna/Docusate Sodium (Senokot-S) 1 tab HS PRN PO CONSTIPATION; Start at 17:00 Magnesium Hydroxide (Milk Of Mag) 30 ml BID PRN PO CONSTIPATION Last administered on 06/01/17 06:45; Admin Dose 30 ML; Start 05/30/17 at 17:00 Lactulose (Enulose) 20 gm DAILY PRN PO CONSTIPATION Last administered on 09:46; Admin Dose 20 GM; Start 05/30/17 at 09:00 Rivaroxaban (Xarelto) 10 mg Q24H PO Last administered on 06/06/17 17:14; Admin Dose 10 MG; Start 05/30/17 at 17:00 Budesonide (Entocort Ec) 9 mg DAILY PO Last administered on 06/07/17 08:43; Admin Dose 9 MG; Start 05/31/17 at 09:00 Cholecalciferol (Vitamin D) 2,000 unit DAILY PO Last administered on 06/07/17 08:43; Admin Dose 2,000 UNIT; Start 05/31/17 at 09:00 Gabapentin (Neurontin) 100 mg BID PO Last administered on 06/07/17 08:43; Admin Dose 100 MG; Start 05/30/17 at 21:00 Losartan Potassium (Cozaar) 50 mg HS PO Last administered on 06/06/17 20:30; Admin Dose 50 MG; Start 05/30/17 at 21:00 Atorvastatin Calcium (Lipitor) 20 mg DAILY@21 PO Last administered on 20:30; Admin Dose 20 MG; Start 05/30/17 at 21:00 Triamterene/HCTZ (Dyazide) 1 cap DAILY PO Last administered on 06/07/17 08:43 ; Admin Dose 1 CAP; Start 05/31/17 at 09:00 Pantoprazole (Protonix Tab) 40 mg DAILY@06 PO Last administered on 06/07/17 06 :38; Admin Dose 40 MG; Start 05/31/17 at 06:00 Acetaminophen/ Hydrocodone Bitart ([place] (5/325)) 1 tab Q4H PRN PO PAIN Last administered on 06/07/17 06:38; Admin Dose 1 TAB; Start 05/30/17 at 17:00 Acetaminophen (Tylenol Tab) 650 mg Q4H PRN PO PAIN OR TEMP>100.5F Last administered on 06/04/17 05:52; Admin Dose 650 MG; Start 05/30/17 at 17:00 Loratadine (Claritin) 10 mg HS PO Last administered on 06/06/17 20:31; Admin Dose 10 MG; Start 05/30/17 at 22:30 Ondansetron HCl (Zofran Inj) 4 mg Q4H PRN IV NAUSEA AND/OR VOMITING; Start at 07:30 Ondansetron HCl (Zofran Tab) 4 mg Q6H PRN PO NAUSEA AND/OR VOMITING Last administered on 06/01/17 07:46; Admin Dose 4 MG; Start 06/01/17 at 07:30 Sodium Biphosphate/ Sodium Phosphate (Fleet Enema) 133 ml DAILY PRN [place] CONSTIPATION Last administered on 06/01/17 07:47; Admin Dose 133 ML; Start 11 /26/17 at 07:30 Bisacodyl (Dulcolax Supp) 10 mg DAILY PRN [place] CONSTIPATION Last administered on 06/06/17t 06:20; Admin Dose 10 MG; Start 06/06/17 at 06:30 Simethicone (Mylicon) 80 mg Q6 PRN PO DISTENSION/GAS/BLOATING; Start 06/06/17 at 19:30 Assessment/Plan Chief Complaint/Hosp Course 1. Status post right quadriceps tendon repair. The patient is currently stable. Continue physical therapy. 2. Constipation, improved. Continue current bowel regimen. 3. Hypertension. Continue current blood pressure regimen. 4. Ulcerative colitis. Continue budesonide. 5. Neuropathy. Continue Neurontin. 6. Dyslipidemia. Continue statin therapy. 7. Obesity. Continue dietary modification. 8. Gastrointestinal and deep vein thrombosis prophylaxis. Problems: JULIUS VEGA MD Jun 07, 2017 10:28
--- NOTE | 2017-06-07 11:21 | CONS ---
Date/Time of Note Date/Time of Note DATE: 06/07/17 TIME: 11:21 Consult Date/Type/Reason Admit Date/Time May 30, 2017 at 14:45 Subjective Pain under control Objective sba transfer, except min/mod LE management Vital Signs Date Time Temp Pulse Resp B/P Pulse Ox O2 Delivery O2 Flow Rate FiO2 06/07/17 07:30 98.5 62 20 107/56 99 06/06/17 07:53 Room Air Intake and Output 06/06/17 06/06/17 06/07/17 15:00 23:00 07:00 Intake Total 200 ml 950 ml Output Total 400 ml Balance -200 ml 950 ml Results/Medications Medications Current Medications Docusate Sodium (Colace) 100 mg BID PO Last administered on 06/07/17 08:43; Admin Dose 100 MG; Start 05/30/17 at 21:00 Senna/Docusate Sodium (Senokot-S) 1 tab HS PRN PO CONSTIPATION; Start at 17:00 Magnesium Hydroxide (Milk Of Mag) 30 ml BID PRN PO CONSTIPATION Last administered on 06/01/17 06:45; Admin Dose 30 ML; Start 05/30/17 at 17:00 Lactulose (Enulose) 20 gm DAILY PRN PO CONSTIPATION Last administered on 09:46; Admin Dose 20 GM; Start 05/30/17 at 09:00 Rivaroxaban (Xarelto) 10 mg Q24H PO Last administered on 06/06/17 17:14; Admin Dose 10 MG; Start 05/30/17 at 17:00 Budesonide (Entocort Ec) 9 mg DAILY PO Last administered on 06/07/17 08:43; Admin Dose 9 MG; Start 05/31/17 at 09:00 Cholecalciferol (Vitamin D) 2,000 unit DAILY PO Last administered on 06/07/17 08:43; Admin Dose 2,000 UNIT; Start 05/31/17 at 09:00 Gabapentin (Neurontin) 100 mg BID PO Last administered on 06/07/17 08:43; Admin Dose 100 MG; Start 05/30/17 at 21:00 Losartan Potassium (Cozaar) 50 mg HS PO Last administered on 06/06/17 20:30; Admin Dose 50 MG; Start 05/30/17 at 21:00 Atorvastatin Calcium (Lipitor) 20 mg DAILY@21 PO Last administered on 20:30; Admin Dose 20 MG; Start 05/30/17 at 21:00 Triamterene/HCTZ (Dyazide) 1 cap DAILY PO Last administered on 06/07/17 08:43 ; Admin Dose 1 CAP; Start 05/31/17 at 09:00 Pantoprazole (Protonix Tab) 40 mg DAILY@06 PO Last administered on 06/07/17 06 :38; Admin Dose 40 MG; Start 05/31/17 at 06:00 Acetaminophen/ Hydrocodone Bitart ([place] (5/325)) 1 tab Q4H PRN PO PAIN Last administered on 06/07/17 06:38; Admin Dose 1 TAB; Start 05/30/17 at 17:00 Acetaminophen (Tylenol Tab) 650 mg Q4H PRN PO PAIN OR TEMP>100.5F Last administered on 06/04/17 05:52; Admin Dose 650 MG; Start 05/30/17 at 17:00 Loratadine (Claritin) 10 mg HS PO Last administered on 06/06/17 20:31; Admin Dose 10 MG; Start 05/30/17 at 22:30 Ondansetron HCl (Zofran Inj) 4 mg Q4H PRN IV NAUSEA AND/OR VOMITING; Start at 07:30 Ondansetron HCl (Zofran Tab) 4 mg Q6H PRN PO NAUSEA AND/OR VOMITING Last administered on 06/01/17 07:46; Admin Dose 4 MG; Start 06/01/17 at 07:30 Sodium Biphosphate/ Sodium Phosphate (Fleet Enema) 133 ml DAILY PRN [place] CONSTIPATION Last administered on 06/01/17 07:47; Admin Dose 133 ML; Start at 07:30 Bisacodyl (Dulcolax Supp) 10 mg DAILY PRN [place] CONSTIPATION Last administered on 06/06/17 06:20; Admin Dose 10 MG; Start 06/06/17 at 06:30 Simethicone (Mylicon) 80 mg Q6 PRN PO DISTENSION/GAS/BLOATING; Start 06/06/17 at 19:30 Assessment/Plan Additional Assessment/Plan Rehab- Other ortho disorder with R patellar fracture and quad tendon rupture-s/ p repair, L knee contusion and L foot tendontitis Overall improving. Continue rehab program. HTN HLD Obesity NAHUM CHAVEZ MD Jun 07, 2017 11:21
[2017-06-07 14:00] VITALS: BP 145/65; RESP 18
[2017-06-07] MEDS: RIVAROXABAN 10 MG TABLET PO SCH (17:40)
[2017-06-07 19:58] VITALS: BP 123/69; RESP 18
[2017-06-07] MEDS: LOSARTAN 50 MG TAB PO SCH (21:08)
[2017-06-07] MEDS: ATORVASTATIN 20 MG TAB PO SCH (21:08)
[2017-06-07] MEDS: LORATADINE 10 MG TAB PO SCH (21:08)
[2017-06-08 02:49] VITALS: BP 115/55; RESP 19
[2017-06-08] MEDS: PANTOPRAZOLE (EC) 40 MG TAB PO SCH (06:39)
--- NOTE | 2017-06-08 08:02 | CONS ---
Date/Time of Note Date/Time of Note DATE: 06/08/17 TIME: 08:01 Consult Date/Type/Reason Admit Date/Time May 30, 2017 at 14:45 Subjective The patient is stable. No events overnight. No fevers, chills, nausea, vomiting. had multiple formed stools yesterday OBJECTIVE: HEENT: Head is normocephalic. NECK: Supple. HEART: Regular rate. LUNGS: Show diminished breath sounds at base. ABDOMEN: Soft, nontender to palpation without rebound or guarding. EXTREMITIES: Negative for clubbing, cyanosis, no edema. DERMATOLOGIC: No rashes. MUSCULOSKELETAL: No joint effusions. NEUROLOGIC: No change in exam. MEDICATIONS: Have been reviewed. Objective Vital Signs Date Time Temp Pulse Resp B/P Pulse Ox O2 Delivery O2 Flow Rate FiO2 06/08/17 02:49 98.2 63 19 115/55 94 06/06/17 07:53 Room Air Intake and Output 06/07/17 06/07/17 06/08/17 14:59 22:59 06:59 Intake Total 640 ml 360 ml Output Total 401 ml 600 ml Balance 239 ml -240 ml Results/Medications Medications Current Medications Docusate Sodium (Colace) 100 mg BID PO Last administered on 06/07/17 21:08; Admin Dose 100 MG; Start 05/30/17 at 21:00 Senna/Docusate Sodium (Senokot-S) 1 tab HS PRN PO CONSTIPATION; Start at 17:00 Magnesium Hydroxide (Milk Of Mag) 30 ml BID PRN PO CONSTIPATION Last administered on 06/01/17 06:45; Admin Dose 30 ML; Start 05/30/17 at 17:00 Lactulose (Enulose) 20 gm DAILY PRN PO CONSTIPATION Last administered on 09:46; Admin Dose 20 GM; Start 05/30/17 at 09:00 Rivaroxaban (Xarelto) 10 mg Q24H PO Last administered on 06/07/17 17:40; Admin Dose 10 MG; Start 05/30/17 at 17:00 Budesonide (Entocort Ec) 9 mg DAILY PO Last administered on 06/07/17 08:43; Admin Dose 9 MG; Start 05/31/17 at 09:00 Cholecalciferol (Vitamin D) 2,000 unit DAILY PO Last administered on 06/07/17 08:43; Admin Dose 2,000 UNIT; Start 05/31/17 at 09:00 Gabapentin (Neurontin) 100 mg BID PO Last administered on 06/07/17 21:08; Admin Dose 100 MG; Start 05/30/17 at 21:00 Losartan Potassium (Cozaar) 50 mg HS PO Last administered on 06/07/17 21:08; Admin Dose 50 MG; Start 05/30/17 at 21:00 Atorvastatin Calcium (Lipitor) 20 mg DAILY@21 PO Last administered on 21:08; Admin Dose 20 MG; Start 05/30/17 at 21:00 Triamterene/HCTZ (Dyazide) 1 cap DAILY PO Last administered on 06/07/17 08:43 ; Admin Dose 1 CAP; Start 05/31/17 at 09:00 Pantoprazole (Protonix Tab) 40 mg DAILY@06 PO Last administered on 06/08/17 06 :39; Admin Dose 40 MG; Start 05/31/17 at 06:00 Acetaminophen/ Hydrocodone Bitart ([place] (5/325)) 1 tab Q4H PRN PO PAIN Last administered on 06/07/17 21:12; Admin Dose 1 TAB; Start 05/30/17 at 17:00 Acetaminophen (Tylenol Tab) 650 mg Q4H PRN PO PAIN OR TEMP>100.5F Last administered on 06/04/17 05:52; Admin Dose 650 MG; Start 05/30/17 at 17:00 Loratadine (Claritin) 10 mg HS PO Last administered on 06/07/17 21:08; Admin Dose 10 MG; Start 05/30/17 at 22:30 Ondansetron HCl (Zofran Inj) 4 mg Q4H PRN IV NAUSEA AND/OR VOMITING; Start at 07:30 Ondansetron HCl (Zofran Tab) 4 mg Q6H PRN PO NAUSEA AND/OR VOMITING Last administered on 06/01/17 07:46; Admin Dose 4 MG; Start 06/01/17 at 07:30 Sodium Biphosphate/ Sodium Phosphate (Fleet Enema) 133 ml DAILY PRN [place] CONSTIPATION Last administered on 06/01/17 07:47; Admin Dose 133 ML; Start at 07:30 Bisacodyl (Dulcolax Supp) 10 mg DAILY PRN [place] CONSTIPATION Last administered on 06/06/17t 06:20; Admin Dose 10 MG; Start 06/06/17 at 06:30 Simethicone (Mylicon) 80 mg Q6 PRN PO DISTENSION/GAS/BLOATING; Start 06/06/17 at 19:30 Assessment/Plan Chief Complaint/Hosp Course 1. Status post right quadriceps tendon repair. The patient is currently stable. Continue physical therapy. 2. Constipation, improved. Continue current bowel regimen. 3. Hypertension. Continue current blood pressure regimen. 4. Ulcerative colitis. Continue budesonide. 5. Neuropathy. Continue Neurontin. 6. Dyslipidemia. Continue statin therapy. 7. Obesity. Continue dietary modification. 8. Gastrointestinal and deep vein thrombosis prophylaxis. Problems: JULIUS VEGA MD Jun 08, 2017 08:02
[2017-06-08 08:35] VITALS: BP 121/57; PULSE 69; RESP 18
[2017-06-08] MEDS: GABAPENTIN 100 MG CAP PO SCH ×2 (09:01→20:27)
[2017-06-08] MEDS: BUDESONIDE (EC) 3 MG CAP PO SCH (09:01)
[2017-06-08] MEDS: TRIAMTERENE/HCTZ (37.5-25) CAP PO SCH (09:02)
[2017-06-08] MEDS: DOCUSATE SODIUM 100 MG CAP PO SCH ×2 (09:02→20:27)
[2017-06-08] MEDS: CHOLECALCIFEROL 2,000 UNIT CAP PO SCH (09:05)
[2017-06-08] MEDS: ACETAMINOPHEN 325 MG TAB PO PRN (09:10)
[2017-06-08] MEDS: HYDROCODONE/APAP (5/325) TAB PO PRN ×2 (13:54→20:34)
[2017-06-08] MEDS: RIVAROXABAN 10 MG TABLET PO SCH (17:45)
[2017-06-08 20:00] VITALS: BP 117/59; RESP 18
[2017-06-08] MEDS: LORATADINE 10 MG TAB PO SCH (20:27)
[2017-06-08] MEDS: ATORVASTATIN 20 MG TAB PO SCH (20:27)
[2017-06-08 20:31] VITALS: BP 116/66; PULSE 74; RESP 18
[2017-06-08] MEDS: LOSARTAN 50 MG TAB PO SCH (20:31)
[2017-06-09 02:00] VITALS: BP 114/57; RESP 18
[2017-06-09] MEDS: PANTOPRAZOLE (EC) 40 MG TAB PO SCH (06:07)
[2017-06-09 08:00] VITALS: BP 114/63; RESP 19
[2017-06-09] MEDS: CHOLECALCIFEROL 2,000 UNIT CAP PO SCH (08:14)
[2017-06-09] MEDS: GABAPENTIN 100 MG CAP PO SCH ×2 (08:14→21:59)
[2017-06-09] MEDS: DOCUSATE SODIUM 100 MG CAP PO SCH ×2 (08:14→20:24)
[2017-06-09] MEDS: HYDROCODONE/APAP (5/325) TAB PO PRN ×4 (08:14→21:59)
[2017-06-09] MEDS: TRIAMTERENE/HCTZ (37.5-25) CAP PO SCH (08:15)
--- NOTE | 2017-06-09 11:47 | PN ---
DATE: 06/09/2017 SUBJECTIVE: The patient is stable. No events overnight. OBJECTIVE: VITAL SIGNS: Blood pressure is 114/57, respiration 18, pulse 68, temperature 98.2. HEENT: Head is normocephalic. NECK: Supple. HEART: Regular rate. LUNGS: Show diminished breath sounds at base. ABDOMEN: Soft, nontender to palpation. No rebound or guarding. EXTREMITIES: Negative for clubbing, cyanosis, no edema. DERMATOLOGIC: No rashes. MUSCULOSKELETAL: No joint effusions. NEUROLOGIC: No change in exam. MEDICATIONS: Have been reviewed. LABORATORY DATA: Has been reviewed. Abdominal ultrasound was reviewed. ASSESSMENT AND PLAN: 1. Status post right quadriceps tendon repair. The patient is currently stable. Continue physical therapy. 2. Abdominal pain, improving. The patient's ultrasound shows evidence of fatty liver. No other ac ak chin pathology noted. Continue to monitor. 3. Constipation, improved. Continue current bowel regimen. 4. Hypertension. Continue current blood pressure regimen. 5. Ulcerative colitis. Continue budesonide. 6. Neuropathy. Continue Neurontin. 7. Dyslipidemia. Continue statin therapy. 8. Obesity. Continue dietary modification. 9. Gastrointestinal and deep vein thrombosis prophylaxis. Dictated By: DONY HUNTER/NTS Conf#: [id number] DID#: [id number] CC: NAHUM CHAVEZ MD;*EndCC*
--- NOTE | 2017-06-09 13:13 | CONS ---
Date/Time of Note Date/Time of Note DATE: 06/09/17 TIME: 13:13 Consult Date/Type/Reason Admit Date/Time May 30, 2017 at 14:45 Objective Vital Signs Date Time Temp Pulse Resp B/P Pulse Ox O2 Delivery O2 Flow Rate FiO2 06/09/17 08:00 98.0 60 19 114/63 97 06/08/17 08:35 Room Air Intake and Output 06/08/17 06/08/17 06/09/17 14:59 22:59 06:59 Intake Total 1600 ml 300 ml Output Total 1000 ml 300 ml Balance 600 ml 0 ml INTERDISCIPLINARY TEAM CONFERENCE BOWEL- Cont BLADDER-Cont SKIN- intact OT- DRESSING-sba BATHING-sba/min TOILETING-sba PT- BED MOBILITY-sba TRANSFERS-sba/min AMBULATION-sba WC mobility-sba A/P- Interdisciplinary team conference held today. Please see interdisciplinary sheet. Working toward d.c. on 06/12 with post discharge follow up of physical therapy, occupational therapy. Results/Medications Medications Current Medications Docusate Sodium (Colace) 100 mg BID PO Last administered on 06/09/17 08:14; Admin Dose 100 MG; Start 05/30/17 at 21:00 Senna/Docusate Sodium (Senokot-S) 1 tab HS PRN PO CONSTIPATION; Start at 17:00 Magnesium Hydroxide (Milk Of Mag) 30 ml BID PRN PO CONSTIPATION Last administered on 06/01/17 06:45; Admin Dose 30 ML; Start 05/30/17 at 17:00 Lactulose (Enulose) 20 gm DAILY PRN PO CONSTIPATION Last administered on 09:46; Admin Dose 20 GM; Start 05/30/17 at 09:00 Rivaroxaban (Xarelto) 10 mg Q24H PO Last administered on 06/08/17 17:45; Admin Dose 10 MG; Start 05/30/17 at 17:00 Budesonide (Entocort Ec) 9 mg DAILY PO Last administered on 06/08/17 09:01; Admin Dose 9 MG; Start 05/31/17 at 09:00 Cholecalciferol (Vitamin D) 2,000 unit DAILY PO Last administered on 06/09/17 08:14; Admin Dose 2,000 UNIT; Start 05/31/17 at 09:00 Gabapentin (Neurontin) 100 mg BID PO Last administered on 06/09/17 08:14; Admin Dose 100 MG; Start 05/30/17 at 21:00 Losartan Potassium (Cozaar) 50 mg HS PO Last administered on 06/08/17 20:31; Admin Dose 50 MG; Start 05/30/17 at 21:00 Atorvastatin Calcium (Lipitor) 20 mg DAILY@21 PO Last administered on 20:27; Admin Dose 20 MG; Start 05/30/17 at 21:00 Triamterene/HCTZ (Dyazide) 1 cap DAILY PO Last administered on 06/09/17 08:15 ; Admin Dose 1 CAP; Start 05/31/17 at 09:00 Pantoprazole (Protonix Tab) 40 mg DAILY@06 PO Last administered on 06/09/17 06 :07; Admin Dose 40 MG; Start 05/31/17 at 06:00 Acetaminophen/ Hydrocodone Bitart ([place] (5/325)) 1 tab Q4H PRN PO PAIN Last administered on 06/09/17 08:14; Admin Dose 1 TAB; Start 05/30/17 at 17:00 Acetaminophen (Tylenol Tab) 650 mg Q4H PRN PO PAIN OR TEMP>100.5F Last administered on 06/08/17 09:10; Admin Dose 650 MG; Start 05/30/17 at 17:00 Loratadine (Claritin) 10 mg HS PO Last administered on 06/08/17 20:27; Admin Dose 10 MG; Start 05/30/17 at 22:30 Ondansetron HCl (Zofran Inj) 4 mg Q4H PRN IV NAUSEA AND/OR VOMITING; Start at 07:30 Ondansetron HCl (Zofran Tab) 4 mg Q6H PRN PO NAUSEA AND/OR VOMITING Last administered on 06/01/17 07:46; Admin Dose 4 MG; Start 06/01/17 at 07:30 Sodium Biphosphate/ Sodium Phosphate (Fleet Enema) 133 ml DAILY PRN [place] CONSTIPATION Last administered on 06/01/17 07:47; Admin Dose 133 ML; Start at 07:30 Bisacodyl (Dulcolax Supp) 10 mg DAILY PRN [place] CONSTIPATION Last administered on 06/06/17t 06:20; Admin Dose 10 MG; Start 06/06/17 at 06:30 Simethicone (Mylicon) 80 mg Q6 PRN PO DISTENSION/GAS/BLOATING; Start 06/06/17 at 19:30 NAHUM CHAVEZ MD Jun 09, 2017 13:13
[2017-06-09] MEDS: BUDESONIDE (EC) 3 MG CAP PO SCH (15:28)
[2017-06-09] MEDS: RIVAROXABAN 10 MG TABLET PO SCH (18:01)
[2017-06-09 20:00] VITALS: BP 134/61; RESP 18
[2017-06-09] MEDS: MAGNESIUM HYDROXIDE 30ML CUP PO PRN (20:24)
[2017-06-09] MEDS: ATORVASTATIN 20 MG TAB PO SCH (20:24)
[2017-06-09] MEDS: LORATADINE 10 MG TAB PO SCH (20:27)
[2017-06-09] MEDS: LOSARTAN 50 MG TAB PO SCH (20:27)
[2017-06-10 02:00] VITALS: BP 128/63; RESP 18
[2017-06-10] MEDS: HYDROCODONE/APAP (5/325) TAB PO PRN ×4 (02:54→20:25)
[2017-06-10] MEDS: PANTOPRAZOLE (EC) 40 MG TAB PO SCH (06:21)
[2017-06-10 07:30] VITALS: BP 132/63; RESP 18
[2017-06-10] MEDS: DOCUSATE SODIUM 100 MG CAP PO SCH ×2 (08:46→20:25)
[2017-06-10] MEDS: CHOLECALCIFEROL 2,000 UNIT CAP PO SCH (08:46)
[2017-06-10] MEDS: BUDESONIDE (EC) 3 MG CAP PO SCH (08:46)
[2017-06-10] MEDS: TRIAMTERENE/HCTZ (37.5-25) CAP PO SCH (08:46)
[2017-06-10] MEDS: GABAPENTIN 100 MG CAP PO SCH ×2 (08:47→20:25)
--- NOTE | 2017-06-10 11:13 | PN ---
DATE: 06/10/2017 SUBJECTIVE: The patient is stable. No events overnight. No fevers, chills, nausea, vomiting. OBJECTIVE: VITAL SIGNS: Blood pressure is 132/63, temperature 98.1, pulse 60. HEENT: Head is normocephalic. NECK: Supple. HEART: Regular rate. LUNGS: Show diminished breath sounds at base. ABDOMEN: Soft, obese, nontender to palpation. No rebound or guarding. EXTREMITIES: Negative for clubbing, cyanosis, no edema. DERMATOLOGIC: No rashes. MUSCULOSKELETAL: No joint effusions. NEUROLOGIC: No change in exam. MEDICATIONS: Have been reviewed. LABORATORY DATA: Has been reviewed. No new labs. ASSESSMENT AND PLAN: 1. Status post right quadriceps tendon repair. The patient is currently stable. Continue physical therapy. 2. Abdominal pain, improved. Ultrasound showed evidence of fatty liver. Continue to monitor. 3. Fatty liver. Continue dietary modification. 4. Constipation, improved. 5. Hypertension. Continue current blood pressure regimen. 6. Ulcerative colitis. Continue budesonide. 7. Neuropathy. Continue Neurontin. 8. Dyslipidemia. Continue statin therapy. 9. Obesity. Continue dietary modification. 10. Gastrointestinal and deep venous thrombosis prophylaxis. Dictated By: DONY GUZMÁN DO NR/NTS Conf#: [id number] DID#: [id number] CC: NAHUM CHAVEZ MD;*End*
--- NOTE | 2017-06-10 12:49 | CONS ---
Date/Time of Note Date/Time of Note DATE: 06/10/17 TIME: 12:48 Consult Date/Type/Reason Admit Date/Time May 30, 2017 at 14:45 Subjective Up for therapies earlier Objective patient progressing with therapies. SBA ambulation Vital Signs Date Time Temp Pulse Resp B/P Pulse Ox O2 Delivery O2 Flow Rate FiO2 06/10/17 07:30 98.1 60 18 132/63 96 06/08/17 08:35 Room Air Intake and Output 06/09/17 06/09/17 06/10/17 15:00 23:00 07:00 Intake Total 120 ml 1440 ml 620 ml Output Total 2050 ml 2150 ml 1200 ml Balance -1930 ml -710 ml -580 ml Results/Medications Medications Current Medications Docusate Sodium (Colace) 100 mg BID PO Last administered on 06/10/17 08:46; Admin Dose 100 MG; Start 05/30/17 at 21:00 Senna/Docusate Sodium (Senokot-S) 1 tab HS PRN PO CONSTIPATION; Start at 17:00 Magnesium Hydroxide (Milk Of Mag) 30 ml BID PRN PO CONSTIPATION Last administered on 06/09/17 20:24; Admin Dose 30 ML; Start 05/30/17 at 17:00 Lactulose (Enulose) 20 gm DAILY PRN PO CONSTIPATION Last administered on 09:46; Admin Dose 20 GM; Start 05/30/17 at 09:00 Rivaroxaban (Xarelto) 10 mg Q24H PO Last administered on 06/09/17 18:01; Admin Dose 10 MG; Start 05/30/17 at 17:00 Budesonide (Entocort Ec) 9 mg DAILY PO Last administered on 06/10/17 08:46; Admin Dose 9 MG; Start 05/31/17 at 09:00 Cholecalciferol (Vitamin D) 2,000 unit DAILY PO Last administered on 06/10/17 08:46; Admin Dose 2,000 UNIT; Start 05/31/17 at 09:00 Gabapentin (Neurontin) 100 mg BID PO Last administered on 06/10/17 08:47; Admin Dose 100 MG; Start 05/30/17 at 21:00 Losartan Potassium (Cozaar) 50 mg HS PO Last administered on 06/09/17 20:27; Admin Dose 50 MG; Start 05/30/17 at 21:00 Atorvastatin Calcium (Lipitor) 20 mg DAILY@21 PO Last administered on 20:24; Admin Dose 20 MG; Start 05/30/17 at 21:00 Triamterene/HCTZ (Dyazide) 1 cap DAILY PO Last administered on 06/10/17 08:46 ; Admin Dose 1 CAP; Start 05/31/17 at 09:00 Pantoprazole (Protonix Tab) 40 mg DAILY@06 PO Last administered on 06/10/17 06 :21; Admin Dose 40 MG; Start 05/31/17 at 06:00 Acetaminophen/ Hydrocodone Bitart ([place] (5/325)) 1 tab Q4H PRN PO PAIN Last administered on 06/10/17 06:55; Admin Dose 1 TAB; Start 05/30/17 at 17:00 Acetaminophen (Tylenol Tab) 650 mg Q4H PRN PO PAIN OR TEMP>100.5F Last administered on 06/08/17 09:10; Admin Dose 650 MG; Start 05/30/17 at 17:00 Loratadine (Claritin) 10 mg HS PO Last administered on 06/09/17 20:27; Admin Dose 10 MG; Start 05/30/17 at 22:30 Ondansetron HCl (Zofran Inj) 4 mg Q4H PRN IV NAUSEA AND/OR VOMITING; Start at 07:30 Ondansetron HCl (Zofran Tab) 4 mg Q6H PRN PO NAUSEA AND/OR VOMITING Last administered on 06/01/17 07:46; Admin Dose 4 MG; Start 06/01/17 at 07:30 Sodium Biphosphate/ Sodium Phosphate (Fleet Enema) 133 ml DAILY PRN [place] CONSTIPATION Last administered on 06/01/17 07:47; Admin Dose 133 ML; Start at 07:30 Bisacodyl (Dulcolax Supp) 10 mg DAILY PRN [place] CONSTIPATION Last administered on 06/06/17 06:20; Admin Dose 10 MG; Start 06/06/17 at 06:30 Simethicone (Mylicon) 80 mg Q6 PRN PO DISTENSION/GAS/BLOATING; Start 06/06/17 at 19:30 Assessment/Plan Additional Assessment/Plan Rehab- Other ortho disorder with R patellar fracture and quad tendon rupture-s/ p repair, L knee contusion and L foot tendontitis Continue rehab therapies HTN HLD Obesity NAHUM CHAVEZ MD Jun 10, 2017 12:49
[2017-06-10 14:00] VITALS: BP 114/61; RESP 18
[2017-06-10] MEDS: RIVAROXABAN 10 MG TABLET PO SCH (17:11)
[2017-06-10 20:00] VITALS: BP 121/69; RESP 18
[2017-06-10] MEDS: ATORVASTATIN 20 MG TAB PO SCH (20:25)
[2017-06-10] MEDS: LORATADINE 10 MG TAB PO SCH (20:25)
[2017-06-10] MEDS: LOSARTAN 50 MG TAB PO SCH (20:26)
[2017-06-10 20:29] VITALS: BP 118/72; PULSE 70
[2017-06-11 02:00] VITALS: BP 128/66; RESP 18
[2017-06-11] MEDS: PANTOPRAZOLE (EC) 40 MG TAB PO SCH (06:26)
[2017-06-11 07:30] VITALS: BP 118/63; RESP 18
[2017-06-11] MEDS: BUDESONIDE (EC) 3 MG CAP PO SCH (08:41)
[2017-06-11] MEDS: CHOLECALCIFEROL 2,000 UNIT CAP PO SCH (08:41)
[2017-06-11] MEDS: HYDROCODONE/APAP (5/325) TAB PO PRN ×3 (08:42→18:16)
[2017-06-11] MEDS: TRIAMTERENE/HCTZ (37.5-25) CAP PO SCH (08:42)
[2017-06-11] MEDS: GABAPENTIN 100 MG CAP PO SCH ×2 (08:42→20:33)
[2017-06-11] MEDS: DOCUSATE SODIUM 100 MG CAP PO SCH ×2 (08:42→20:33)
--- NOTE | 2017-06-11 11:15 | PN ---
DATE: 06/11/2017 SUBJECTIVE: The patient is stable. No events noted. No fevers, chills, nausea, vomiting. OBJECTIVE: VITAL SIGNS: Blood pressure is 128/66, respirations 18, pulse 73, temperature 98.0. HEENT: Head is normocephalic. NECK: Supple. HEART: Regular rate. LUNGS: Show diminished breath sounds at base. ABDOMEN: Soft, nontender to palpation. No rebound or guarding. EXTREMITIES: Negative for clubbing, cyanosis, no edema. DERMATOLOGIC: No rashes. MUSCULOSKELETAL: No joint effusions. NEUROLOGIC: No change in exam. MEDICATIONS: Have been reviewed. LABORATORY DATA: Has been reviewed. No new labs. ASSESSMENT AND PLAN: 1. Status post quadriceps tendon repair. The patient is currently stable. Continue physical thera py. 2. Fatty liver. Continue dietary modification. 3. Constipation, improved. 4. Hypertension. Continue current blood pressure regimen. 5. Ulcerative colitis, budesonide. 6. Neuropathy. Continue Neurontin. 7. Dyslipidemia. Continue statin therapy. 8. Obesity. Continue dietary modification. 9. Gastrointestinal and deep venous thrombosis prophylaxis. Dictated By: DONY GUZMÁN DO NR/NTS Conf#: [id number] DID#: [id number] CC: NAHUM CHAVEZ MD;*EndCC*
--- NOTE | 2017-06-11 11:58 | CONS ---
Date/Time of Note Date/Time of Note DATE: 06/11/17 TIME: 11:58 Consult Date/Type/Reason Admit Date/Time May 30, 2017 at 14:45 Subjective Doing well with rehab program Objective sba ambulation Vital Signs Date Time Temp Pulse Resp B/P Pulse Ox O2 Delivery O2 Flow Rate FiO2 06/11/17 07:30 98.8 62 18 118/63 95 06/08/17 08:35 Room Air Intake and Output 06/10/17 06/10/17 06/11/17 15:00 23:00 07:00 Intake Total 2000 ml 700 ml Output Total 500 ml 1150 ml 1100 ml Balance -500 ml 850 ml -400 ml Results/Medications Medications Current Medications Docusate Sodium (Colace) 100 mg BID PO Last administered on 06/11/17 08:42; Admin Dose 100 MG; Start 05/30/17 at 21:00 Senna/Docusate Sodium (Senokot-S) 1 tab HS PRN PO CONSTIPATION; Start at 17:00 Magnesium Hydroxide (Milk Of Mag) 30 ml BID PRN PO CONSTIPATION Last administered on 06/09/17 20:24; Admin Dose 30 ML; Start 05/30/17 at 17:00 Lactulose (Enulose) 20 gm DAILY PRN PO CONSTIPATION Last administered on 09:46; Admin Dose 20 GM; Start 05/30/17 at 09:00 Rivaroxaban (Xarelto) 10 mg Q24H PO Last administered on 06/10/17 17:11; Admin Dose 10 MG; Start 05/30/17 at 17:00 Budesonide (Entocort Ec) 9 mg DAILY PO Last administered on 06/11/17 08:41; Admin Dose 9 MG; Start 05/31/17 at 09:00 Cholecalciferol (Vitamin D) 2,000 unit DAILY PO Last administered on 06/11/17 08:41; Admin Dose 2,000 UNIT; Start 05/31/17 at 09:00 Gabapentin (Neurontin) 100 mg BID PO Last administered on 06/11/17 08:42; Admin Dose 100 MG; Start 05/30/17 at 21:00 Losartan Potassium (Cozaar) 50 mg HS PO Last administered on 06/10/17 20:26; Admin Dose 50 MG; Start 05/30/17 at 21:00 Atorvastatin Calcium (Lipitor) 20 mg DAILY@21 PO Last administered on 20:25; Admin Dose 20 MG; Start 05/30/17 at 21:00 Triamterene/HCTZ (Dyazide) 1 cap DAILY PO Last administered on 06/11/17 08:42 ; Admin Dose 1 CAP; Start 05/31/17 at 09:00 Pantoprazole (Protonix Tab) 40 mg DAILY@06 PO Last administered on 06/11/17 06 :26; Admin Dose 40 MG; Start 05/31/17 at 06:00 Acetaminophen/ Hydrocodone Bitart ([place] (5/325)) 1 tab Q4H PRN PO PAIN Last administered on 06/11/17 08:42; Admin Dose 1 TAB; Start 05/30/17 at 17:00 Acetaminophen (Tylenol Tab) 650 mg Q4H PRN PO PAIN OR TEMP>100.5F Last administered on 06/08/17 09:10; Admin Dose 650 MG; Start 05/30/17 at 17:00 Loratadine (Claritin) 10 mg HS PO Last administered on 06/10/17 20:25; Admin Dose 10 MG; Start 05/30/17 at 22:30 Ondansetron HCl (Zofran Inj) 4 mg Q4H PRN IV NAUSEA AND/OR VOMITING; Start at 07:30 Ondansetron HCl (Zofran Tab) 4 mg Q6H PRN PO NAUSEA AND/OR VOMITING Last administered on 06/01/17 07:46; Admin Dose 4 MG; Start 06/01/17 at 07:30 Sodium Biphosphate/ Sodium Phosphate (Fleet Enema) 133 ml DAILY PRN [place] CONSTIPATION Last administered on 06/01/17 07:47; Admin Dose 133 ML; Start at 07:30 Bisacodyl (Dulcolax Supp) 10 mg DAILY PRN [place] CONSTIPATION Last administered on 06/06/17 06:20; Admin Dose 10 MG; Start 06/06/17 at 06:30 Simethicone (Mylicon) 80 mg Q6 PRN PO DISTENSION/GAS/BLOATING; Start 06/06/17 at 19:30 Assessment/Plan Additional Assessment/Plan Rehab- Other ortho disorder with R patellar fracture and quad tendon rupture-s/ p repair, L knee contusion and L foot tendontitis Continue rehab therapies, anticipate dc tomorrow HTN HLD Obesity NAHUM CHAVEZ MD Jun 11, 2017 11:58
[2017-06-11 14:00] VITALS: BP 111/63; RESP 20
[2017-06-11] MEDS: RIVAROXABAN 10 MG TABLET PO SCH (17:56)
[2017-06-11] MEDS: LORATADINE 10 MG TAB PO SCH (20:33)
[2017-06-11] MEDS: ATORVASTATIN 20 MG TAB PO SCH (20:33)
[2017-06-11] MEDS: LOSARTAN 50 MG TAB PO SCH (20:34)
[2017-06-11 21:00] VITALS: BP 118/63; RESP 18
[2017-06-11] MEDS ORDERED: HYDROCODONE/APAP (10/325) TAB PO ONE (22:30)
[2017-06-12] VITALS: BP 120/68; RESP 18
[2017-06-12 02:00] VITALS: BP 124/70; RESP 18
[2017-06-12] MEDS: PANTOPRAZOLE (EC) 40 MG TAB PO SCH (06:07)
[2017-06-12] MEDS: HYDROCODONE/APAP (5/325) TAB PO PRN ×2 (06:08→10:10)
[2017-06-12 08:00] VITALS: BP 136/64; RESP 19
[2017-06-12] MEDS: BUDESONIDE (EC) 3 MG CAP PO SCH (08:42)
[2017-06-12] MEDS: GABAPENTIN 100 MG CAP PO SCH (08:43)
[2017-06-12] MEDS: DOCUSATE SODIUM 100 MG CAP PO SCH (08:43)
[2017-06-12] MEDS: CHOLECALCIFEROL 2,000 UNIT CAP PO SCH (08:43)
[2017-06-12] MEDS: TRIAMTERENE/HCTZ (37.5-25) CAP PO SCH (08:48)
--- NOTE | 2017-06-12 11:08 | DS ---
Date/Time of Note Date/Time of Note DATE: 06/12/17 TIME: 11:08 Discharge Summary Admission/Discharge Info Admit Date/Time May 30, 2017 at 14:45 Discharge Date/Time Discharge Diagnosis 1. Other orthopedic disorder with right patellar avulsion fracture with quadriceps tendon rupture, status post repair. 2. Morbid obesity. 3. Peripheral polyneuropathy. 4. Urinary retention. 5. Hypertension. 6. Hyperlipidemia. 7. Venous insufficiency. 8. Improvements in self-care and mobility. Patient Condition: Good Hospital Course Patient was admitted for comprehensive interdisciplinary acute rehabilitation. Patient made steady functional gains and improved from a maximal level to a Modified Independent level for self care and mobility, including ambulating over 150 feet with the use of a front wheeled walker. Patient is being discharged home with recommendations for home health PT and OT follow up. DME recommendations: [facility]; [facility]; Shower Chair Patient will follow up with PMD upon DC. Primary Care Provider MD SCOTT Jack LIVA L. MD Jun 12, 2017 11:08
--- NOTE | 2017-06-12 11:57 | PN ---
DATE: 06/12/2017 SUBJECTIVE: The patient is stable. No events overnight. No fever, chills, nausea, vomiting. OBJECTIVE: VITAL SIGNS: Blood pressure is 124/70, pulse 85, respirations 20, temperature 98.9. HEENT: Head is normocephalic. NECK: Supple. HEART: Regular rate. LUNGS: Show diminished breath sounds at the base. ABDOMEN: Soft, nontender to palpation. No rebound or guarding. EXTREMITIES: Negative for clubbing, cyanosis. No edema. DERMATOLOGIC: No rashes. MUSCULOSKELETAL: No joint effusions. NEUROLOGIC: No change in exam. MEDICATIONS: The patient's medications have been reviewed. LABORATORY DATA: Has been reviewed. No new labs. ASSESSMENT AND PLAN: 1. Status post quadriceps tendon repair. The patient is currently stable. Continue physical thera py. 2. Fatty liver. Continue dietary modification. 3. Constipation, improved. 4. Hypertension. Continue current blood pressure regimen. 5. Ulcerative colitis. Continue budesonide. 6. Neuropathy. Continue Neurontin. 7. Dyslipidemia. Continue statin therapy. 8. Obesity. Continue dietary modification. Dictated By: DONY HUNTER/NTS Conf#: [id number] DID#: [id number] CC: NAHUM CHAVEZ MD;*End*
[2017-06-13 07:00] VITALS: BP 113/58; RESP 18
== END 2017-06-12 11:30 | disposition home health service (06) | DRG 560 ==
LOC: VRC 14:45
PROVIDERS: ADMIT Physical Medicine & Rehabilitation; ATTEND Internal Medicine Nephrology
PROC: F08Z1ZZ Dressing Techniques Treatment (ICD-10-PCS; principal; 2017-05-30)
PROC: F08Z0ZZ Bathing/Showering Techniques Treatment (ICD-10-PCS; 2017-05-30)
PROC: F08Z2ZZ Grooming/Personal Hygiene Treatment (ICD-10-PCS; 2017-05-30)
PROC: F07Z5ZZ Bed Mobility Treatment (ICD-10-PCS; 2017-05-30)
PROC: F07Z8ZZ Transfer Training Treatment (ICD-10-PCS; 2017-05-30)
PROC: F07Z9ZZ Gait Training/Functional Ambulation Treatment (ICD-10-PCS; 2017-05-30)
PROC: 0HBRXZZ Excision of Toe Nail, External Approach (ICD-10-PCS; 2017-06-06)
PROC: 0HBRXZZ Excision of Toe Nail, External Approach (ICD-10-PCS; 2017-06-06)
PROC: 0HBRXZZ Excision of Toe Nail, External Approach (ICD-10-PCS; 2017-06-06)
PROC: 0HBRXZZ Excision of Toe Nail, External Approach (ICD-10-PCS; 2017-06-06)
PROC: 0HBRXZZ Excision of Toe Nail, External Approach (ICD-10-PCS; 2017-06-06)
PROC: 0HBRXZZ Excision of Toe Nail, External Approach (ICD-10-PCS; 2017-06-06)
PROC: 0HBRXZZ Excision of Toe Nail, External Approach (ICD-10-PCS; 2017-06-06)
PROC: 0HBRXZZ Excision of Toe Nail, External Approach (ICD-10-PCS; 2017-06-06)
PROC: 0HBRXZZ Excision of Toe Nail, External Approach (ICD-10-PCS; 2017-06-06)
PROC: 0HBRXZZ Excision of Toe Nail, External Approach (ICD-10-PCS; 2017-06-06)
DX: S82.001D Unspecified fracture of right patella, subsequent encounter for closed fracture with routine healing (principal); A04.9 Bacterial intestinal infection, unspecified; Z68.41 Body mass index [BMI] 40.0-44.9, adult; E66.01 Morbid (severe) obesity due to excess calories; K51.90 Ulcerative colitis, unspecified, without complications; K76.0 Fatty (change of) liver, not elsewhere classified; G62.9 Polyneuropathy, unspecified; S76.111D Strain of right quadriceps muscle, fascia and tendon, subsequent encounter; Z98.890 Other specified postprocedural states; W18.30XD Fall on same level, unspecified, subsequent encounter; E78.5 Hyperlipidemia, unspecified; K59.00 Constipation, unspecified; R33.9 Retention of urine, unspecified; I87.2 Venous insufficiency (chronic) (peripheral); M76.72 Peroneal tendinitis, left leg
CPT/HCPCS: 74000; 76700; 80048; 80053; 81001; 83735; 84100; 85025; 87081; 87086; 97110; 97116; 97150; 97163; 97165; 97530; 97535; 97542